=== PATIENT | female | born 1995 | race Caucasian/White ===

== ENCOUNTER 2018-01-27 11:07 | Emergency (ER) | payer SELFPAY ==
[2018-01-27 11:48] LABS: #Basophils 0.1 thou/uL (0.0-0.2); #Eosinphils 0.1 thou/uL (0.0-0.7); #Lymphocytes 2.6 thou/uL (1.20-3.40); #Monocytes 0.6 thou/uL (0.11-0.59); #Neutrophils 4.7 thou/uL (1.40-6.50); %Eosinophils 1.2 % (0.0-10.0); %Lymphocytes 32.2 % (21.0-51.0); %Monocytes 7.3 % (0.0-10.0); %Neutrophils 58.3 % (42.0-75.0); Hemoglobin 15.4 g/dL (12.0-16.0); Mean Corpuscular HGB CONC 33.3 g/dL (32.0-36.0); Mean Corpuscular Hemoglobin 32.2 pg (27.0-31.0); Mean Corpuscular Volume 96.8 fl (81.0-99.0); Mean Platelet Volume 6.3 fL (7.4-10.4); Platelet Count 296 thou/uL (130-400); RBC Distribution Width 11.7 % (11.5-14.5); Red Blood Cell (RBC) Count 4.79 mill/uL (4.20-5.40); White Blood Cell (WBC) Count 8.1 thou/uL (4.8-10.8)
== END 2018-01-27 12:40 | disposition left against medical advice (07) ==
LOC: ERS 11:07
DX: Z53.21 Procedure and treatment not carried out due to patient leaving prior to being seen by health care provider (principal)
CPT/HCPCS: 36415; 84702; 85025; 86900; 86901

== ENCOUNTER 2018-02-06 21:45 | Emergency (ER) | payer OTHER, SELFPAY ==
[2018-02-06] MEDS ORDERED: Ondansetron HCl/PF 4 MG/2 ML Vial ONE (22:01)
[2018-02-06] MEDS ORDERED: Lorazepam 2 MG/ML VIAL ONE (22:01)
[2018-02-06 23:03] LABS: #Basophils 0.1 thou/uL (0.0-0.2); #Eosinphils 0.1 thou/uL (0.0-0.7); #Lymphocytes 3.2 thou/uL (1.20-3.40); #Monocytes 0.4 thou/uL (0.11-0.59); #Neutrophils 5.2 thou/uL (1.40-6.50); %Basophils 0.9 % (0.0-1.0); %Eosinophils 1.4 % (0.0-10.0); %Lymphocytes 35.3 % (21.0-51.0); %Monocytes 4.9 % (0.0-10.0); %Neutrophils 57.5 % (42.0-75.0); Hemoglobin 14.5 g/dL (12.0-16.0); Mean Corpuscular HGB CONC 34.3 g/dL (32.0-36.0); Mean Corpuscular Hemoglobin 32.6 pg (27.0-31.0); Mean Platelet Volume 6.4 fL (7.4-10.4); Platelet Count 262 thou/uL (130-400); RBC Distribution Width 11.4 % (11.5-14.5); Red Blood Cell (RBC) Count 4.46 mill/uL (4.20-5.40); White Blood Cell (WBC) Count 9.1 thou/uL (4.8-10.8)
[2018-02-06 23:23] LABS: ALT (SGPT) 19 U/L (8-55); AST (SGOT) 20 U/L (5-34); Albumin 4.3 g/dL (3.5-5.0); Alkaline Phosphatase 84 U/L (40-150); Anion Gap 12 mmol/L (10-20); BUN (Urea Nitrogen) 5 mg/dL (7.0-18.7); Bilirubin, Total 0.2 mg/dL (0.2-1.2); Calc. Creatinine Clearance 0 mL/min (70-130); Calcium 8.9 mg/dL (7.8-10.44); Carbon Dioxide 27 mmol/L (22-29); Chloride 111 mmol/L (98-107); Estimated GFR-MDRD Greater than 90; Globulin 2.6 g/dL (2.4-3.5); Glucose 88 mg/dL (70-105); Lipase 24 U/L (8-78); Potassium 3.3 mmol/L (3.5-5.1); Protein, Total 6.9 g/dL (6.0-8.3); Sodium 147 mmol/L (136-145)
[2018-02-06 23:24] LABS: Acetaminophen Less than 6.0 mcg/mL (10.0-30.0); Alcohol 307 mg/dL (Less than 10); CK (CPK) 614 U/L (29-168); Salicylate Less than 8.0 mg/dL (15.0-30.0)
[2018-02-06 23:34] LABS: BHCG - Serum Negative (NEGATIVE); Pregs Control Background? CLEAR/WHITE (CLR/WHITE); Pregs Control Bar Appear? YES (CONTROL BAR)
[2018-02-06 23:45] LABS: Amphetamine Not Detected (NotDetected); Barbiturates Screen Not Detected (NotDetected); Benzodiazepine Screen Not Detected (NotDetected); Cocaine Metabolite Screen Not Detected (NotDetected); Medtox Control Line Valid? VALID (VALID); Medtox Reader # READER 4; Methadone Not Detected (NotDetected); Methamphetamine Not Detected (NotDetected); Opiate Screen Not Detected (NotDetected); Oxycodone Screen Not Detected (NotDetected); Phencyclidine (PCP) Not Detected (NotDetected); THC/Cannabinoid Screen Detected (NotDetected); Tricyclic Screen Not Detected (NotDetected)
[2018-02-06 23:46] LABS: Thyroid Stimulating Hormone 1.9516 uIU/mL (0.35-4.94)
[2018-02-06 23:50] LABS: Bilirubin Negative (Negative); Blood, Urine Negative (Negative); Clarity CLEAR (Clear); Glucose, Urine (Dipstick) Negative (Negative); Leukocyte Negative (Negative); Nitrite Negative (Negative); Pregnancy Test - Urine (BHCG) Negative (Negative); Pregu Control Background? CLEAR/WHITE (CLR/WHITE); Pregu Control Bar Appear? YES (CONTROL BAR); Protein, Urine (Dipstick) Negative (Neg-Trace); Specific Gravity, Urine 1.007 (1.002-1.036); Urobilinogen 0.2 mg/dL (0.2-1.0)
[2018-02-06 23:51] LABS: Specific Gravity 1.007 (1.002-1.036)
== END 2018-02-07 00:40 | disposition home or self-care (01) ==
LOC: ERS 21:45
DX: F10.129 Alcohol abuse with intoxication, unspecified (principal); I10 Essential (primary) hypertension; F17.210 Nicotine dependence, cigarettes, uncomplicated
CPT/HCPCS: 36415; 80053; 80306; 80307; 81003; 81025; 82550; 83690; 84443; 84703; 85025; 96361; 96374; 96375; J2060; J2405

== ENCOUNTER 2018-11-02 18:04 | Emergency (ER) | payer OTHER, SELFPAY ==
[2018-11-02] MEDS ORDERED: Lidocaine 1% (PF) 30 ML VIAL ONE (18:59)
[2018-11-02] MEDS ORDERED: Bacitracin Zinc 1 Packet ONE (20:23)
== END 2018-11-02 20:40 | disposition home or self-care (01) ==
LOC: ERS 18:04
DX: L03.011 Cellulitis of right finger (principal); I10 Essential (primary) hypertension; F17.210 Nicotine dependence, cigarettes, uncomplicated
CPT/HCPCS: 26010; J2001

== ENCOUNTER 2018-11-22 16:10 | Inpatient (IN) | payer SELFPAY ==
[~2018-11-22 16:10] MED LIST: Heparin 1,000 UNITS/ML VIAL ONE
[2018-11-22 17:37] LABS: Bilirubin Moderate (Negative); Blood, Urine Large (Negative); Clarity TURBID (Clear); Glucose, Urine (Dipstick) Negative (Negative); Leukocyte Large (Negative); Nitrite Negative (Negative); Protein, Urine (Dipstick) 100 mg/dL (Neg-Trace); Specific Gravity, Urine 1.016 (1.002-1.036)
[2018-11-22 17:39] LABS: Pregnancy Test - Urine (BHCG) Negative (Negative); Pregu Control Background? CLEAR/WHITE (CLR/WHITE); Pregu Control Bar Appear? YES (CONTROL BAR); Specific Gravity 1.016 (1.002-1.036)
[2018-11-22 17:43] LABS: Bacteria/HPF Rare-Few HPF (None Seen); Hyaline Casts/LPF 4-6 HYALINE CAST LPF (0-3 Hyaline); Pathc Cast-AUWi Flag 1.19 (0-2.49); RBC/HPF GREATER THAN 50-TNTC HPF (0-3)
[2018-11-22] MEDS ORDERED: Lidocaine 1% (PF) 30 ML VIAL ONE ×2 (18:01→18:02)
--- NOTE | 2018-11-22 18:53 | RAD ---
THREE VIEWS OF THE RIGHT MIDDLE FINGER 11/12/18 COMPARISON: None. HISTORY: Swelling, pain. FINDINGS: There is cortical bone loss involving the distal aspect of the third distal phalanx with overlying so ft tissue swelling, concerning for osteomyelitis involving the distal tip of the third distal phalanx . IMPRESSION: Soft tissue swelling with distal cortical bone loss and permeative lytic change involving distal tip of the third distal phalanx. Findings are consistent with osteomyelitis. Recommend MRI with and witho ut contrast to evaluate full extent of disease. POS: [facility]
[2018-11-22 18:55] LABS: #Basophils 0.1 thou/uL (0.0-0.2); #Eosinphils 0.1 thou/uL (0.0-0.7); #Monocytes 0.9 thou/uL (0.11-0.59); #Neutrophils 3.7 thou/uL (1.40-6.50); %Basophils 0.8 % (0.0-1.0); %Eosinophils 0.9 % (0.0-10.0); %Lymphocytes 38.7 % (21.0-51.0); %Monocytes 11.9 % (0.0-10.0); %Neutrophils 47.7 % (42.0-75.0); Hemoglobin 13.7 g/dL (12.0-16.0); Mean Corpuscular HGB CONC 32.3 g/dL (32.0-36.0); Mean Corpuscular Hemoglobin 27.6 pg (27.0-31.0); Mean Corpuscular Volume 85.2 fL (78.0-98.0); Mean Platelet Volume 6.7 fL (7.4-10.4); Platelet Count 434 thou/uL (130-400); RBC Distribution Width 13.5 % (11.5-14.5); Red Blood Cell (RBC) Count 4.98 mill/uL (4.20-5.40); White Blood Cell (WBC) Count 7.8 thou/uL (4.8-10.8)
[2018-11-22 19:18] LABS: ALT (SGPT) 22 U/L (8-55); AST (SGOT) 20 U/L (5-34); Albumin 4.4 g/dL (3.5-5.0); Alkaline Phosphatase 86 U/L (40-150); Anion Gap 14 mmol/L (10-20); BUN (Urea Nitrogen) 12 mg/dL (7.0-18.7); Bilirubin, Total 0.2 mg/dL (0.2-1.2); Calc. Creatinine Clearance 0 mL/min (70-130); Calcium 9.9 mg/dL (7.8-10.44); Carbon Dioxide 26 mmol/L (22-29); Chloride 103 mmol/L (98-107); Estimated GFR-MDRD Greater than 90; Globulin 2.9 g/dL (2.4-3.5); Glucose 63 mg/dL (70-105); Potassium 3.2 mmol/L (3.5-5.1); Protein, Total 7.3 g/dL (6.0-8.3); Sodium 140 mmol/L (136-145)
--- NOTE | 2018-11-22 19:46 | PDOC.FPRHP ---
Addendum entered and electronically signed by Michell Mcduffie MD 11/23/18 03:25 : polysubstance abuse: - HIV, RPR, and hep C screening pending. Original Note: - History of Present Illness Chief Complaint: right middle finger pain History of Present Illness: The patient is a 23YOF w/ a PMH significant for HTN who presented to the ED with a CC of persistent right middle finger pain and swelling that she reports she first noticed about 1 month ago. The patient states that she was in her usual state of health until just over 1 month ago when she first developed a hemorrhagic swelling in her right 5th finger. She reports soaking her finger at home and says the "blister" eventually burst and her skin peeled off the end of her 5th finger. However, shortly after that resolved, she began to have swelling and pain in the tip of her right 3rd finger. She says after about 1 week of it getting progressively worse she came to the [facility] ED on 11/02 where they attempted to drain it and were not successful. At that time she was diagnosed with cellulitis and sent home with a script for topical bacitracin and a 10 day course bactrim which she completed. However continued to have persistent swelling and pain and has since noted purulent discharge draining from the tip as well. She also reports associated numbness that begins just at the base of her fingernail and gets progressively worse closer to the tip of her finger. The patient also reports decreased ROM in her fingertip 2/ swelling. She endorses subjective fever/chills, decreased appetite, and generalized fatigue. She also endorses some nausea, dyspnea at rest, and urinary frequency. The patient denies any chest pain or palpitations. ED Course: IV vancomycin and rocephin as well as a lidocaine injection - Allergies/Adverse Reactions Allergies Allergy/AdvReac Type Severity Reaction Status Date / Time tramadol Allergy Intermediate Verified 11/22/18 19:55 - Home Medications Medication Instructions Recorded Confirmed Type No Known 11/23/18 11/23/18 History - History PMHx: HTN- not treated, PCOS, HELLP with last . PSHx: right inguinal hernia: age 8 FHx: Father: HTN Social: Does not work. Smokes since age 12(1/2 PPD), No alcohol use. Reports meth, cocaine, marijuana use last weekend. Denies any h/o IV drug use. Only smokes or snorts drugs. - Review of Systems General: reports: fever/chills, fatigue (feels feverish but no objective fever) Eyes: denies: eye pain ENT: denies: nasal congestion Respiratory: reports: congestion, shortness of breath (at rest). denies: cough Cardiovascular: denies: chest pain, palpitation Gastrointestinal: reports: nausea, constipation. denies: vomiting, diarrhea Genitourinary: reports: other (LMP: 11/22/2018, increased urine frequency). denies: dysuria Skin: reports: lesions (hands, face- maybe spider bite). denies: rashes Musculoskeletal: reports: pain (finger), tenderness (finger) Neurological: reports: numbness (in right middle finger tip). denies: syncope Psychological: reports: anxiety (not on meds). denies: depression - Vital signs BP: 137/89 HR: 110 RR: 16 Tmax: 98.8F Pox: 100% on RA Wt: 35.8kg - Physical Exam Constitutional: NAD, awake, alert and oriented, well developed HEENT: normocephalic and atraumatic, conjunctiva clear, grossly normal vision, grossly normal hearing, MMM, oropharynx clear Neck: supple, FROM, no LAD Chest: no-tender to palpation, no lesions Heart: RRR, normal S1/S2, no murmurs/rubs/gallops, pulses present, no edema Lungs: CTAB, no respiratory distress, good air movement, no rales/rhonchi, no wheezing Abdomen: soft, non-tender, bowel sounds present Musculoskeletal: normal structure, ROM grossly normal Neurological: no focal deficit, CN II-XII intact, other (decreased sensation in distal right 3rd finger) Skin: no jaundice, other (no rash noted; significant edema w/o no surrounding erythema in distal right 3rd digit w/ trace purulent discharge & pallor noted; erythematous, healing skin in distal right 5th digit) Heme/Lymphatic: no unusual bruising or bleeding, no purpura, no petechia Psychiatric: normal mood and affect, good judgment and insight, intact recent and remote memory FMR H&P: Results - Labs Result Diagrams: 11/23/18 06:06 11/23/18 06:06 Lab results: WBC 7.8 thou/uL (4.8-10.8) 11/22/18 18:44 Hgb 13.7 g/dL (12.0-16.0) 11/22/18 18:44 Hct 42.4 % (36.0-47.0) 11/22/18 18:44 MCV 85.2 fL (78.0-98.0) 11/22/18 18:44 Plt Count 434 thou/uL (130-400) H 11/22/18 18:44 Neutrophils % 47.7 % (42.0-75.0) 11/22/18 18:44 Sodium 140 mmol/L (136-145) 11/22/18 18:45 Potassium 3.2 mmol/L (3.5-5.1) L 11/22/18 18:45 Chloride 103 mmol/L (98-107) 11/22/18 18:45 Carbon Dioxide 26 mmol/L (22-29) 11/22/18 18:45 BUN 12 mg/dL (7.0-18.7) 11/22/18 18:45 Creatinine 0.79 mg/dL (0.6-1.1) 11/22/18 18:45 Glucose 63 mg/dL (70-105) L 11/22/18 18:45 Calcium 9.9 mg/dL (7.8-10.44) 11/22/18 18:45 Total Bilirubin 0.2 mg/dL (0.2-1.2) 11/22/18 18:45 AST 20 U/L (5-34) 11/22/18 18:45 ALT 22 U/L (8-55) 11/22/18 18:45 Alkaline Phosphatase 86 U/L (40-150) 11/22/18 18:45 Serum Total Protein 7.3 g/dL (6.0-8.3) 11/22/18 18:45 Albumin 4.4 g/dL (3.5-5.0) 11/22/18 18:45 Urine Ketones 15 mg/dL (Negative) H 11/22/18 17:02 Urine Blood Large (Negative) H 11/22/18 17:02 Urine Nitrite Negative (Negative) 11/22/18 17:02 Ur Leukocyte Esterase Large (Negative) H 11/22/18 17:02 Urine RBC GREATER THAN 50-TNTC HPF (0-3) H 11/22/18 17:02 Urine WBC Greater Than 50-TNTC HPF (0-3) H 11/22/18 17:02 Ur Squamous Epith Cells 4-6 HPF (0-3) H 11/22/18 17:02 Urine Bacteria Rare-Few HPF (None Seen) 11/22/18 17:02 - Radiology Interpretation Other Status: image reviewed by me, report reviewed by me ( right hand x-ray: distal cortical bone loss with lytic change consistent with osteo) FMR H&P: A/P - Problem List (1) Osteomyelitis Current Visit: Yes Status: Acute Code(s): M86.9 - OSTEOMYELITIS, UNSPECIFIED Qualifiers: Osteomyelitis location: hand Laterality: right (2) Hypokalemia Current Visit: Yes Status: Acute Code(s): E87.6 - HYPOKALEMIA (3) Sinus tachycardia Current Visit: Yes Status: Acute Code(s): R00.0 - TACHYCARDIA, UNSPECIFIED (4) HTN (hypertension) Current Visit: Yes Status: Chronic Code(s): I10 - ESSENTIAL (PRIMARY) HYPERTENSION (5) PCOS (polycystic ovarian syndrome) Current Visit: Yes Status: Chronic Code(s): E28.2 - POLYCYSTIC OVARIAN SYNDROME (6) History of hemolysis, elevated liver enzymes, and low platelet (HELLP) syndrome Current Visit: Yes Status: Chronic Code(s): Z87.59 - PERSONAL HISTORY OF COMP OF PREG, CHLDBRTH AND THE PUERP (7) Polysubstance abuse Current Visit: Yes Status: Acute Code(s): F19.10 - OTHER PSYCHOACTIVE SUBSTANCE ABUSE, UNCOMPLICATED (8) Tobacco use Current Visit: Yes Status: Acute Code(s): Z72.0 - TOBACCO USE - Plan 23YOF w/ a PMH significant for HTN who presented to the ED w/ a CC of right finger pain and swelling and was found to have osteomyelitis in the distal portion of her right 3rd digit on x-ray. Osteomyelitis of distal right 3rd digit: - WBC WNLs and patient has been afebrile since presentation. However, x-ray findings consistent with osteomyelitis. Will get a CRP to trend. Will consult hand surgery in the AM and get an MRI per their recommendations. - Will continue IV vancomycin and rocephin that was started in the ED. - Will continue PO tylenol for pain control as patient actually reports numbness and only pain with palpation. Will escalate pain control PRN. - Blood cultures pending. - CM consulted as patient is uninsured and will likely need assistance getting set up for IV abx upon discharge. Hypokalemia: - Aware, K of 3.2 on presentation. - Will get a repeat CMP in the AM and give a dose of 40mEq PO with breakfast. - Will continue to monitor. Sinus tachycardia: - Aware, likely 2/2 infection. However, patient admitted to polysubstance abuse. Will get a UDS as well. Possible UTI: - Urine grossly bloody 2/2 menstruation & patient endorses only urinary frequency. However, also + for LE, ketones, and small bacteria. IV Rocephin will cover if their is an infection. Urine culture pending. HTN: - BP slightly above normal limits in the ED. - Will continue to monitor and start on antihypertensive therapy PRN. PCOS: - Aware, will encourage outpatient follow-up. Polysubstance abuse: - Patient admitted to cocaine, marijuana, and most recently meth use. - UDS pending. - Will encourage cessation. Tobacco use: - Aware, will encourage cessation. - Nicotine patch will be ordered if patient requests one. Dispo: Will admit to inpatient medical floor and consult hand surgery in the AM. Anticipate d/c in no less than 2-3 days pending surgery recs. Abx: Rocephin & vancomycin day #1 DVT PPx: SCDs GI PPX: none IVFs: SL Code status: FULL CODE FMR H&P: Upper Level - Pertinent history 23 yr old female with PMH of HTN who presents for right middle finger pain. Seen in ER on 11/02/18 after about a week of pain in her right middle finger tip and 5th digit. Had I&D of middle finger. Then on bactrim for 10 days. Not getting better, finger feels numb. Has pins and needles feeling. Has been draining at home. 5th digit seems to be better. - Pertinent findings X ray right middle finger- 3rd distal phalanx lytic lesions c/w osteomyelitis Gen: No acute distress, well appearing Face: small lesion on right chin without erythema EXT: right 3rd digit distal tip with some pallor, no erythema, ulcerated appearance, raised nail bed, tender to touch Heart: RRR, no murmurs, gallops, rubs Lungs: CTAB, no wheezes, rhales, rhonchi Abd: soft, nontender to palpation Skin: no rashes - Plan Date/Time: 11/22/181945 I, [Elisa eNvarez], have evaluated this patient and agree with findings/plan as outlined by general internal medicine physician resident. Pertinent changes/additions are listed here. Right 3rd digit osteomyelitis -started on vanc and rocephin in ER, will continue -consult hand surgeon in AM and consider MRI if desired -pending CRP -consult wound care HTN -monitor Drug use -pending UDS -cessation counseling provided -will screen for HIV and hepatitis C Tobacco use -smoking cessation counseling provided PCP: none, City call DVT ppx: SCDs GI ppx: none Diet: Reg, NPO after midnight Dispo: admit to medical, will require IV abx, likely 2-3 day stay depending on need for oil heaterman abx. Addendum - Attending - Attending Attestation Date/Time: 11/22/182036 I personally evaluated the patient and discussed the management with Dr. Mcduffie. I agree with the History, Examination, Assessment and Plan documented above with any addition or exceptions noted below. The patient presented with a several week history of pain in the distal tip of the right 3rd finger with swelling. She failed outpt bactrum and bacitracin that was prescribed at an er visit in October. XR is consistent with osteomyelitis. Vanc and rocephin have been started. Blood cultures are pending. Pt admits to drug use but denies IV drug use. will get UDS. Will consult hand surgeon.
[2018-11-22] MEDS ORDERED: Sodium Chloride 0.9% 100 ML ONE (20:17)
[2018-11-22] MEDS ORDERED: cefTRIAXone\\ROCEPHIN 1 GM VIAL ONE (20:17)
[2018-11-22] MEDS ORDERED: Vancomycin HCl 500 MG in Sodium Chloride 0.9% 100 ML IVPB SCH (20:45)
[2018-11-22] MEDS ORDERED: diphenhydrAMINE 12.5 MG/5 ML UDCUP ONE (22:03)
[2018-11-22] MEDS ORDERED: diphenhydrAMINE 50 MG/ML VIAL ONE (22:04)
[2018-11-22] MEDS ORDERED: Acetaminophen 325 MG TAB PO PRN (23:37)
[2018-11-23 01:38] VITALS: BMI 21.2
[2018-11-23 04:00] LABS: HIV (1/2) Antibody/Antigen Non-Reactive (NonReactive); HIV 1/2 INDEX 0.05 S/CO (<1.00); Hep C IgG Ab Non-Reactive (NonReactive); Hep C Index 0.12 S/CO (0-0.79)
[2018-11-23 04:30] LABS: Amphetamine Detected (NotDetected); Barbiturates Screen Not Detected (NotDetected); Benzodiazepine Screen Not Detected (NotDetected); Cocaine Metabolite Screen Not Detected (NotDetected); Medtox Control Line Valid? VALID (VALID); Medtox Reader # READER 1; Methadone Not Detected (NotDetected); Methamphetamine Detected (NotDetected); Opiate Screen Not Detected (NotDetected); Oxycodone Screen Not Detected (NotDetected); Phencyclidine (PCP) Not Detected (NotDetected); THC/Cannabinoid Screen Not Detected (NotDetected); Tricyclic Screen Not Detected (NotDetected)
--- NOTE | 2018-11-23 06:41 | PDOC.FM ---
- Subjective Subjective: Ms. Bess has no new complaints this morning. Tolerating PO intake well. Reports subjective fever/chills overnight. - Objective MAR Reviewed: Yes Vital Signs & Weight: Vital Signs (12 hours) Temp Pulse Resp BP Pulse Ox 11/23/18 05:13 98.6 F 103 H 16 114/68 95 11/23/18 00:00 98.2 F 100 16 124/71 96 11/22/18 23:15 97.9 F 97 20 116/74 100 Weight Weight 39.916 kg Result Diagrams: 11/23/18 06:06 11/23/18 06:06 Phys Exam - Physical Examination Constitutional: NAD Respiratory: clear to auscultation bilateral Cardiovascular: RRR, no significant murmur Gastrointestinal: soft, non-tender, positive bowel sounds Musculoskeletal: no edema R 3rd finger pale, skin peeling, decreased sensation, no open wound. Neurological: non-focal Psychiatric: normal affect Skin: normal turgor Dx/Plan (1) Osteomyelitis Code(s): M86.9 - OSTEOMYELITIS, UNSPECIFIED Status: Acute Qualifiers: Osteomyelitis location: hand Laterality: right (2) Hypokalemia Code(s): E87.6 - HYPOKALEMIA Status: Acute (3) Polysubstance abuse Code(s): F19.10 - OTHER PSYCHOACTIVE SUBSTANCE ABUSE, UNCOMPLICATED Status: Acute (4) Tobacco use Code(s): Z72.0 - TOBACCO USE Status: Acute (5) PCOS (polycystic ovarian syndrome) Code(s): E28.2 - POLYCYSTIC OVARIAN SYNDROME Status: Chronic - Plan Plan: 23YOF w/ a PMH significant for HTN who presented to the ED w/ a CC of right finger pain and swelling and was found to have osteomyelitis in the distal portion of her right 3rd digit on x-ray. Osteomyelitis of distal right 3rd digit: - WBC normal, afebrile since presentation. - x-ray findings consistent with osteomyelitis - consult hand surgery today and get MRI if requested - Will continue IV vancomycin and rocephin (11/23) - Tylenol prn - Blood cultures pending, NGTD - CM consulted as patient is uninsured and will likely need assistance getting set up for IV abx upon discharge. Hypokalemia: - K of 3.2 on presentation. - Replace with 40meq this am - Will continue to monitor. Sinus tachycardia: - likely 2/2 infection. However, patient admitted to polysubstance abuse. Possible UTI: - Urine grossly bloody 2/2 menstruation & patient endorses only urinary frequency. However, also + for LE, ketones, and small bacteria. IV Rocephin will cover if their is an infection. Urine culture pending. Initial elevated BP, now resolved - BP slightly above normal limits in the ED. - Will continue to monitor PCOS: - Aware, will encourage outpatient follow-up. Polysubstance abuse: - Patient admitted to cocaine, marijuana, and most recently meth use. - UDS + for meth, amphetamines - Will encourage cessation. Tobacco use: - Aware, will encourage cessation. - Nicotine patch will be ordered if patient requests one. Dispo: Pending surgery recs Abx: Rocephin & vancomycin DVT PPx: SCDs GI PPX: none IVFs: SL Code status: FULL CODE Addendum - Attending - Attending Attestation Date/Time: 11/23/18 [id number] I personally evaluated the patient and discussed the management with Dr. Johnson. I agree with the History, Examination, Assessment and Plan documented above with any addition or exceptions noted below. Will continue IV antibiotics for osteomyelitis. Consulting hand surgeon, wound care.
[2018-11-23 06:49] LABS: Syphilis Antibody Nonreactive (Nonreactive); Syphilis Antibody Index 0.01 S/CO (<1.00 Non-Reactive)
[2018-11-23 06:59] LABS: #Basophils 0.1 thou/uL (0.0-0.2); #Eosinphils 0.1 thou/uL (0.0-0.7); #Lymphocytes 3.1 thou/uL (1.20-3.40); #Monocytes 0.9 thou/uL (0.11-0.59); #Neutrophils 2.6 thou/uL (1.40-6.50); %Basophils 1.1 % (0.0-1.0); %Eosinophils 1.6 % (0.0-10.0); %Lymphocytes 45.2 % (21.0-51.0); %Monocytes 13.1 % (0.0-10.0); Hemoglobin 11.7 g/dL (12.0-16.0); Mean Corpuscular Hemoglobin 27.5 pg (27.0-31.0); Mean Corpuscular Volume 85.9 fL (78.0-98.0); Platelet Count 361 thou/uL (130-400); RBC Distribution Width 13.5 % (11.5-14.5); Red Blood Cell (RBC) Count 4.25 mill/uL (4.20-5.40); White Blood Cell (WBC) Count 6.8 thou/uL (4.8-10.8)
[2018-11-23 07:16] LABS: ALT (SGPT) 17 U/L (8-55); AST (SGOT) 14 U/L (5-34); Albumin 3.4 g/dL (3.5-5.0); Alkaline Phosphatase 80 U/L (40-150); Anion Gap 10 mmol/L (10-20); BUN (Urea Nitrogen) 15 mg/dL (7.0-18.7); Bilirubin, Total Less than 0.2 mg/dL (0.2-1.2); Calc. Creatinine Clearance 73 mL/min (70-130); Calcium 8.9 mg/dL (7.8-10.44); Carbon Dioxide 26 mmol/L (22-29); Chloride 109 mmol/L (98-107); Estimated GFR-MDRD Greater than 90; Globulin 2.2 g/dL (2.4-3.5); Glucose 95 mg/dL (70-105); Potassium 4.3 mmol/L (3.5-5.1); Protein, Total 5.6 g/dL (6.0-8.3); Sodium 141 mmol/L (136-145)
[2018-11-23] MEDS ORDERED: Potassium Chloride 20 MEQ TAB PO ONE (08:00)
[2018-11-23] MEDS: Vancomycin HCl 500 MG in Sodium Chloride 0.9% 100 ML IVPB SCH ×2 (08:52→23:04)
[2018-11-23] MEDS ORDERED: Gadobenate Dimeglumine 529 MG/1 ML (20ML VIAL) ONE (11:34)
[2018-11-23] MEDS ORDERED: Ibuprofen 800 MG TAB PO PRN (19:34)
[2018-11-23] MEDS: cefTRIAXone\\ROCEPHIN 1 GM in Sodium Chloride 0.9% 100 ML IVPB SCH (19:55)
--- NOTE | 2018-11-23 20:13 | MRI ---
RIGHT FINGER AND HAND MRI WITH AND WITHOUT IV CONTRAST: 11/23/18 HISTORY: Wound to the distal third finger with redness and swelling. COMPARISON: Plain film examination 11/22/18. FINDINGS: There is soft tissue swelling with some enhancement of the distal third finger evidence for celluliti s. There is extensive destructive changes of the distal tuft of the distal phalanx with abnormal sign al, T1 hypointense, STIR and T2 hyperintense within the distal phalanx evidence for distal phalanx os teomyelitis. There is some trace fluid noted within the flexor digitorum tendon sheath of the third f judith at the level of the metacarpal. No evidence for drainable abscess. IMPRESSION: Osteomyelitis involving the distal phalanx of the middle finger with destruction of the tuft with georges e associated cellulitis but no evidence for a drainable abscess. Trace fluid in the third finger flex or digitorum tendon sheath at the level of the distal metacarpal. POS: [facility]
[2018-11-23] MEDS ORDERED: Vancomycin HCl 1 GM in Premix Bag 1 BAG IVPB SCH (23:30)
[2018-11-24] MEDS: Ondansetron ODT 4 MG TAB PO PRN (05:39)
--- NOTE | 2018-11-24 06:42 | PDOC.FM ---
- Subjective Subjective: Patient sleeping well this morning. Reports continued finger pain. Otherwise no complaints. Plans for surgery today. - Objective MAR Reviewed: Yes Vital Signs & Weight: Vital Signs (12 hours) Temp Pulse Resp BP Pulse Ox 11/24/18 05:00 98.5 F 97 16 107/68 97 11/24/18 00:00 98.2 F 103 H 16 111/68 96 11/23/18 20:00 100 11/23/18 19:30 98.6 F 105 H 20 129/87 100 Weight Admit Weight 39.916 kg Weight 39.916 kg I&O: 11/22/18 11/23/18 11/24/18 06:59 06:59 06:59 Intake Total 580 Balance 580 Result Diagrams: 11/24/18 07:01 11/24/18 07:01 Phys Exam - Physical Examination Constitutional: NAD Respiratory: clear to auscultation bilateral Cardiovascular: RRR, no significant murmur Gastrointestinal: soft, non-tender, positive bowel sounds R 3rd finger skin peeling, unchanged since yesterday Neurological: non-focal Dx/Plan (1) Osteomyelitis Code(s): M86.9 - OSTEOMYELITIS, UNSPECIFIED Status: Acute Qualifiers: Osteomyelitis location: hand Laterality: right (2) Hypokalemia Code(s): E87.6 - HYPOKALEMIA Status: Acute (3) Polysubstance abuse Code(s): F19.10 - OTHER PSYCHOACTIVE SUBSTANCE ABUSE, UNCOMPLICATED Status: Acute (4) Tobacco use Code(s): Z72.0 - TOBACCO USE Status: Acute (5) PCOS (polycystic ovarian syndrome) Code(s): E28.2 - POLYCYSTIC OVARIAN SYNDROME Status: Chronic - Plan Plan: 23YOF w/ a PMH significant for HTN who presented to the ED w/ a CC of right finger pain and swelling and was found to have osteomyelitis in the distal portion of her right 3rd digit on x-ray. Osteomyelitis of distal right 3rd digit: - WBC normal, afebrile since presentation. - x-ray and MRI findings consistent with osteomyelitis - Will continue IV vancomycin and rocephin (11/23) - Tylenol prn - Blood cultures, NGTD - Dr. Harmon consulted, plan for surgery today, appreciate recommendations - CM consulted as patient is uninsured and will likely need assistance for follow up needs Hypokalemia, resolved - K of 3.2 on presentation, now resolved - Will continue to monitor. PCOS: - encourage outpatient follow-up. Polysubstance abuse: - Patient admitted to cocaine, marijuana, and most recently meth use. - UDS + for meth, amphetamines - Will encourage cessation. Tobacco use: - encourage cessation. - Nicotine patch will be ordered if patient requests one. Dispo: Pending surgery recs Abx: Rocephin & vancomycin DVT PPx: SCDs GI PPX: none IVFs: SL Code status: FULL CODE Addendum - Attending - Attending Attestation Date/Time: 11/24/18 [id number] I personally evaluated the patient and discussed the management with Dr. Johnson. I agree with the History, Examination, Assessment and Plan documented above with any addition or exceptions noted below. The patient still has pain in the finger. Will go for surgery today. Continue IV antibiotics.
[2018-11-24] MEDS ORDERED: Fentanyl 100 MCG/2 ML VIAL ONE ×2 (07:30→09:43)
[2018-11-24] MEDS ORDERED: Bupivacaine PF 0.5% 30 ML VIAL ONE (07:39)
[2018-11-24] MEDS ORDERED: Bacitracin Zinc Ointment 30 gm TUBE ONE (07:39)
[2018-11-24 07:49] LABS: #Eosinphils 0.1 thou/uL (0.0-0.7); #Lymphocytes 2.6 thou/uL (1.20-3.40); #Monocytes 0.8 thou/uL (0.11-0.59); #Neutrophils 4.3 thou/uL (1.40-6.50); %Basophils 0.6 % (0.0-1.0); %Eosinophils 1.6 % (0.0-10.0); %Lymphocytes 33.2 % (21.0-51.0); %Monocytes 10.4 % (0.0-10.0); %Neutrophils 54.4 % (42.0-75.0); Hemoglobin 11.5 g/dL (12.0-16.0); Mean Corpuscular HGB CONC 31.8 g/dL (32.0-36.0); Mean Corpuscular Hemoglobin 27.3 pg (27.0-31.0); Mean Corpuscular Volume 85.7 fL (78.0-98.0); Platelet Count 342 thou/uL (130-400); RBC Distribution Width 13.5 % (11.5-14.5); Red Blood Cell (RBC) Count 4.21 mill/uL (4.20-5.40)
[2018-11-24 08:00] LABS: ALT (SGPT) 19 U/L (8-55); AST (SGOT) 18 U/L (5-34); Albumin 3.5 g/dL (3.5-5.0); Alkaline Phosphatase 81 U/L (40-150); Anion Gap 13 mmol/L (10-20); BUN (Urea Nitrogen) 16 mg/dL (7.0-18.7); Bilirubin, Total Less than 0.2 mg/dL (0.2-1.2); Calc. Creatinine Clearance 79 mL/min (70-130); Calcium 8.6 mg/dL (7.8-10.44); Carbon Dioxide 23 mmol/L (22-29); Chloride 107 mmol/L (98-107); Estimated GFR-MDRD Greater than 90; Globulin 2.3 g/dL (2.4-3.5); Glucose 99 mg/dL (70-105); Potassium 4.4 mmol/L (3.5-5.1); Protein, Total 5.8 g/dL (6.0-8.3); Sodium 139 mmol/L (136-145)
[2018-11-24] MEDS ORDERED: Ondansetron HCl/PF 4 MG/2 ML Vial IVP PRN (09:21)
[2018-11-24] MEDS ORDERED: Promethazine HCl 25 MG/ML VIAL IM PRN (09:21)
[2018-11-24] MEDS ORDERED: Promethazine HCl 25 MG/ML VIAL SLOW IVP PRN (09:21)
[2018-11-24] MEDS ORDERED: Ketorolac Tromethamine 30 MG/ML VIAL ONE ×2 (09:59→15:45)
--- NOTE | 2018-11-24 09:59 | RAD ---
TWO INTRAOPERATIVE IMAGES OF THE RIGHT 3RD FINGER: DATE: 11/24/2018. HISTORY: Hand biopsy. FINDINGS: Two intraoperative images demonstrate permeative change at the distal aspect of the 3rd distal phalan x with overlying soft tissue swelling. IMPRESSION: Intraoperative imaging as detailed above. POS: [facility]
[2018-11-24] MEDS: Vancomycin HCl 500 MG in Sodium Chloride 0.9% 100 ML IVPB SCH (10:46)
[2018-11-24] MEDS ORDERED: Ketorolac Tromethamine 30 MG/ML VIAL IM SCH (11:00)
[2018-11-24] MEDS ORDERED: Meperidine HCl/PF 25 MG/ML VIAL IM PRN (13:57)
[2018-11-24 14:49] LABS: Ref Lab Test Ordered LYME TITER; Reference Lab Name LABCORP
[2018-11-24] MEDS: Morphine 4 MG/ML VIAL IV PRN ×2 (15:04→20:41)
[2018-11-24] MEDS ORDERED: Lidocaine 1% PF 5 ML VIAL ONE (15:45)
[2018-11-24] MEDS ORDERED: Ondansetron PF 4 MG/2 ML Vial ONE (15:45)
[2018-11-24] MEDS ORDERED: Dexamethasone 20 MG/5 ML VIAL ONE (15:45)
[2018-11-24] MEDS ORDERED: PROPOFOL 200 MG/20 ML VIAL ONE (15:45)
[2018-11-24] MEDS ORDERED: PHENYLEPHRINE-NS 100 MCG/ML 10 ML SYRINGE ONE (15:45)
--- NOTE | 2018-11-24 16:20 | CON ---
DATE OF CONSULTATION: REASON FOR CONSULTATION: Right third digit inflammatory process with osteomyelitis. HISTORY OF PRESENT ILLNESS: A 23-year-old with history of alcoholism and hypertension, who developed chronic swelling of the distal aspect of the right middle finger. She did decide to treat her at home and then she ended up in [place] [facility] on November 02, which they diagnosed her cellulitis and sent home on Bactrim. She continued to have problems and now is finally admitted. Dr. Harmon is taking care of her imaging studies show osteomyelitis of the distal phalanx. No headaches, visual symptoms, sore throat, odynophagia, or dysphagia. No cough or sputum productive. No chest pain. No abdominal pain or diarrhea. No genitourinary symptoms. No neurological symptoms. PAST MEDICAL HISTORY: Includes hypertension, polycystic ovarian syndrome, HELLP syndrome, and alcoholism. PAST SURGICAL HISTORY: Inguinal hernia. FAMILY HISTORY: Hypertension. SOCIAL HISTORY: Chronic smoker, reportedly uses methamphetamine and cocaine, but no IV drug use. There is a history of excessive alcoholic beverage use as well. PHYSICAL EXAMINATION: VITAL SIGNS: T-max 98.6, blood pressure 110/71, pulse 89, respirations 16, and O2 saturation 97%. SKIN: Showed an erythematous swollen distal phalanx of right third digit, little bit of blistering at the end of the digit. The nail bed appears okay. No other skin lesions. HEENT: No lymphadenopathy. Ocular movements conjugate. Sclerae white. Pupils are equal. Cavity moist. NECK: Supple. No jugular venous distention. LUNGS: Clear to auscultation and percussion. HEART: S1 and S2. Regular rate without murmurs. ABDOMEN: Soft, not distended or tender. EXTREMITIES: Pulses are normal in lower extremities. LABORATORY DATA: White cell count is 7.8 and 8.0, hemoglobin 11.5, and platelets 342. Sodium 139 and creatinine 0.7 with normal liver profile. Albumin 4.4 and 3.5. Urinalysis is greater than 50 wbc's. Amphetamines detected. HIV serology nonreactive. Hepatitis C nonreactive. Syphilis nonreactive and the microbiology with negative blood culture thus far at 48 hours. IMAGING STUDIES: With evidence of osteomyelitis distal phalanx, middle finger destruction of tuft with some associated cellulitis, but no abscess. Trace fluid in the third finger flexor digitorum tendon sheath. ASSESSMENT AND PLAN: Osteomyelitis likely tenosynovitis. We will need surgical debridement, cultures and then target antimicrobial therapy according to culture results. Since antibiotics were administered prior to sampling, this will affect the results of cultures. Disposition will be made difficult because of her social situation and history of drug use. Job ID: [id number]
[2018-11-24] MEDS: Ketorolac Tromethamine 30 MG/ML VIAL IVP SCH (17:31)
[2018-11-24] MEDS: cefTRIAXone\\ROCEPHIN 1 GM in Sodium Chloride 0.9% 100 ML IVPB SCH (20:40)
[2018-11-24 20:56] LABS: Vancomycin, Trough 4.8 ug/mL
[2018-11-24] MEDS ORDERED: Vancomycin HCl 500 MG in Sodium Chloride 0.9% 100 ML IVPB SCH (21:00)
[2018-11-24] MEDS ORDERED: Vancomycin HCl 750 MG in Sodium Chloride 0.9% 250 ML 250 ML IVPB SCH (21:15)
[2018-11-25] MEDS: Ketorolac Tromethamine 30 MG/ML VIAL IVP SCH ×4 (01:05→17:16)
[2018-11-25] MEDS: Vancomycin HCl 750 MG in Sodium Chloride 0.9% 250 ML 250 ML IVPB SCH ×2 (06:04→14:24)
[2018-11-25 07:12] LABS: ALT (SGPT) 18 U/L (8-55); AST (SGOT) 15 U/L (5-34); Albumin 3.1 g/dL (3.5-5.0); Alkaline Phosphatase 70 U/L (40-150); Anion Gap 8 mmol/L (10-20); BUN (Urea Nitrogen) 14 mg/dL (7.0-18.7); Bilirubin, Total Less than 0.2 mg/dL (0.2-1.2); Calc. Creatinine Clearance 87 mL/min (70-130); Calcium 8.1 mg/dL (7.8-10.44); Carbon Dioxide 26 mmol/L (22-29); Chloride 109 mmol/L (98-107); Estimated GFR-MDRD Greater than 90; Globulin 2.1 g/dL (2.4-3.5); Glucose 102 mg/dL (70-105); Potassium 3.7 mmol/L (3.5-5.1); Protein, Total 5.2 g/dL (6.0-8.3); Sodium 139 mmol/L (136-145)
--- NOTE | 2018-11-25 09:14 | PDOC.FM ---
- Subjective Subjective: No acute events overnight. Still reports pain at surgical site, well controlled with current pain meds. - Objective MAR Reviewed: Yes Vital Signs & Weight: Vital Signs (12 hours) Temp Pulse Resp BP Pulse Ox 11/25/18 08:00 98.2 F 101 H 14 100/60 97 11/25/18 04:00 98.1 F 92 16 105/64 97 11/25/18 00:00 98.7 F 93 16 121/65 97 Weight Admit Weight 39.916 kg Weight 39.916 kg I&O: 11/24/18 11/25/18 11/26/18 06:59 06:59 06:59 Intake Total 580 240 Balance 580 240 Result Diagrams: 11/24/18 07:01 11/25/18 06:23 Phys Exam - Physical Examination Constitutional: NAD HEENT: moist MMs, sclera anicteric Neck: supple, full ROM R hand bandaged, post op Neurological: non-focal, moves all 4 limbs Psychiatric: normal affect, A&O x 3 Dx/Plan (1) Hypokalemia Code(s): E87.6 - HYPOKALEMIA Status: Acute (2) Osteomyelitis Code(s): M86.9 - OSTEOMYELITIS, UNSPECIFIED Status: Acute Qualifiers: Osteomyelitis location: hand Laterality: right (3) Sinus tachycardia Code(s): R00.0 - TACHYCARDIA, UNSPECIFIED Status: Acute (4) Tobacco use Code(s): Z72.0 - TOBACCO USE Status: Acute (5) HTN (hypertension) Code(s): I10 - ESSENTIAL (PRIMARY) HYPERTENSION Status: Chronic (6) PCOS (polycystic ovarian syndrome) Code(s): E28.2 - POLYCYSTIC OVARIAN SYNDROME Status: Chronic - Plan Plan: 23YOF with tenosynovitis of distal right 3rd digit s/p debridement Tenosynovitis of distal right 3rd digit, s/p debridement, POD1 - Osteo confirmed with XR and MRI - Continue vanc - Will d/c rocephin - Tylenol prn - Blood cultures, NGTD - Pending bone cultures - CM consulted as patient is uninsured and will likely need assistance for follow up needs - Possible autoimmune component, will order w/u : CHRISTOPHER, scleroderma ABs Hypokalemia, resolved - K of 3.2 on presentation, now resolved - Will continue to monitor. PCOS: - encourage outpatient follow-up. Polysubstance abuse: - Patient admitted to cocaine, marijuana, and most recently meth use. - UDS + for meth, amphetamines - Will encourage cessation. - Check HIV/Hep/RPR Tobacco use: - encourage cessation. - Nicotine patch will be ordered if patient requests one. Dispo: Pending surgery recs DVT PPx: SCDs GI PPX: none IVFs: SL Code status: FULL CODE Addendum - Attending - Attending Attestation Date/Time: 11/25/18 8405 I personally evaluated the patient and discussed the management with Dr. Nunn I agree with the History, Examination, Assessment and Plan documented above with any addition or exceptions noted below. Continue IV vancomycin pending final C&S will ask I&D opinion further rec Osteomyelitis Rx
[2018-11-25] MEDS ORDERED: Clindamycin 150 MG CAP PO SCH (10:00)
[2018-11-25 13:15] LABS: ANA Symphony (Qualitative) Negative (Negative); ANA Symphony (Quantitative) Less than 0.1 Ratio (< 0.7 Negative); CCP IgG Antibody 0.5 EliAU/mL (<7 Negative); EliA RAS New Method **** NEW METHOD ****; Rheumatoid Factor IgA Antibody 1.7 IU/mL (<14 Negative); Rheumatoid Factor IgM Antibody Less than 0.5 IU/mL (<3.5 Negative); dsDNA IgG Antibody Less than 0.5 IU/mL (<10 Negative)
--- NOTE | 2018-11-25 14:05 | PRG ---
DATE OF SERVICE: 11/25/2018 SUBJECTIVE: Ms. Bae is not in the room at this time. According to the nurse, she feels constrained in the room and wants to go out. She is afebrile. Other vital signs are normal. LABORATORY DATA: Shows white cell count of 8.0. Albumin 3.1. All the autoimmune panel was negative. HIV serology and hepatitis C serology negative. Microbiology with Staphylococcus aureus pending susceptibility studies. Dr. Harmon did a bone biopsy. I do not have an operative report yet to review. ASSESSMENT AND DISCUSSION: History of polysubstance use with right third digit inflammatory process with osteomyelitis. This disposition will be difficult because of social situation and history of drug use. We will await for the final results of the susceptibility studies, but could consider oral combination of Cipro and clindamycin or Cipro and Keflex. If it is MRSA, then I will recommend IV therapy. Job ID: [id number]
[2018-11-25] MEDS: Morphine 4 MG/ML VIAL IV PRN (14:25)
--- NOTE | 2018-11-25 14:39 | OP ---
DATE OF PROCEDURE: 11/24/2018 PREOPERATIVE DIAGNOSIS: Right middle finger distal phalanx osteomyelitis. FINDING: Mucopurulent with erosion and loss of the radial distal 5 mm corner of the distal phalanx at this right middle finger, secondary to osteomyelitis, holding the skin. PROCEDURES PERFORMED: 1. Removal of nail. 2. Resection, cortical bone, phalanx for osteomyelitis. 3. Bone biopsy. 4. Irrigation. 5. C-arm supervision. ESTIMATED BLOOD LOSS Less than 10 mL. TOURNIQUET TIME: 9 minutes. SPECIMEN SENT: Yes. 1. Wound culture. 2. Bone culture. 3. Bone biopsy to Pathology . INDICATION: The patient with almost 3 months of swelling, intermittent drainage, pain, and decreased function at this right middle finger with lytic lesion in the radial distal corner of the distal phalanx. DESCRIPTION OF PROCEDURE: After successful anesthesia, limb was prepped and draped. The patient then had the C-arm brought in to field, timeout performed, radial distal corner. We made a curvilinear 1 cm incision over the area, dissected the skin medially, gross purulence escaped, white pus and then there was a saul mucopurulence seen with subacute or chronic osteomyelitis. We debrided this. We sent a culture of the mucopurulence. We sent a culture of the bone. We then sent a bone specimen for biopsy. I have removed the corner completely and there was bleeding bone on the left and we felt there was enough support for the nail bed. We then irrigated the area, retracted the incision to visualize the bone with 3 L normal saline and Pulsavac pressure. We deflated the tourniquet. We did not close the wound and left it open with a small amount of Adaptic inside. Bulky dressing was applied. We occluded the index finger in the outside bulky dressing with support, and the patient left the operating room with pink digits. No evidence of anesthetic operative complication. Job ID: [id number]
[2018-11-25] MEDS ORDERED: Senokot 8.6 MG TAB PO PRN (20:01)
[2018-11-25] MEDS ORDERED: Polyethylene Glycol 3350 17 GM Packet PO PRN (20:01)
[2018-11-25] MEDS: HYDROcodone/Acetaminophen 7.5/325 mg Tablet PO PRN (20:33)
[2018-11-25 22:13] LABS: Vancomycin, Trough 12.8 ug/mL
[2018-11-25] MEDS ORDERED: Vancomycin HCl 1 GM in Premix Bag 1 BAG IVPB SCH (22:30)
[2018-11-25 22:32] LABS: Syphilis Antibody Nonreactive (Nonreactive); Syphilis Antibody Index 0.01 S/CO (<1.00 Non-Reactive)
[2018-11-25] MEDS: Vancomycin HCl 1 GM in Premix Bag 1 BAG IVPB SCH (22:56)
[2018-11-26 00:20] LABS: HBSAB Concentration 0.64 mIU/mL; HBSAg Index 0.19 S/CO (0-0.99); HIV (1/2) Antibody/Antigen Non-Reactive (NonReactive); HIV 1/2 INDEX 0.07 S/CO (<1.00); Hep B Surf AB Non-Reactive (NonReactive); Hep B Surf Ag Non-Reactive S/CO (NonReactive); Hep C IgG Ab Non-Reactive (NonReactive)
[2018-11-26] MEDS: Ketorolac Tromethamine 30 MG/ML VIAL IVP SCH ×5 (00:54→23:29)
[2018-11-26] MEDS: Ondansetron ODT 4 MG TAB PO PRN (05:21)
[2018-11-26] MEDS: Vancomycin HCl 1 GM in Premix Bag 1 BAG IVPB SCH ×3 (05:23→15:25)
[2018-11-26 07:39] LABS: ALT (SGPT) 19 U/L (8-55); AST (SGOT) 15 U/L (5-34); Albumin 3.2 g/dL (3.5-5.0); Alkaline Phosphatase 68 U/L (40-150); Anion Gap 10 mmol/L (10-20); BUN (Urea Nitrogen) 9 mg/dL (7.0-18.7); Bilirubin, Total Less than 0.2 mg/dL (0.2-1.2); Calc. Creatinine Clearance 87 mL/min (70-130); Calcium 8.2 mg/dL (7.8-10.44); Carbon Dioxide 26 mmol/L (22-29); Chloride 107 mmol/L (98-107); Estimated GFR-MDRD Greater than 90; Glucose 94 mg/dL (70-105); Potassium 3.9 mmol/L (3.5-5.1); Protein, Total 5.2 g/dL (6.0-8.3); Sodium 139 mmol/L (136-145)
[2018-11-26] MEDS: HYDROcodone/Acetaminophen 7.5/325 mg Tablet PO PRN ×3 (08:37→20:49)
[2018-11-26] MEDS: Vancomycin HCl 750 MG in Sodium Chloride 0.9% 250 ML 250 ML IVPB SCH (10:49)
[2018-11-26] MEDS ORDERED: Bisacodyl 5 MG TAB PO PRN (10:51)
--- NOTE | 2018-11-26 11:20 | PDOC.FM ---
- Objective Vital Signs & Weight: Vital Signs (12 hours) Temp Pulse Resp BP Pulse Ox 11/26/18 08:00 100 11/26/18 07:58 98.4 F 109 H 16 115/72 100 11/26/18 04:00 98.5 F 93 16 109/72 97 11/26/18 00:00 98.2 F 91 16 93/57 L 96 Weight Admit Weight 39.916 kg Weight 39.916 kg I&O: 11/25/18 11/26/18 11/27/18 06:59 06:59 06:59 Intake Total 240 2130 Balance 240 2130 Result Diagrams: 11/24/18 07:01 11/26/18 07:11 Dx/Plan (1) Hypokalemia Code(s): E87.6 - HYPOKALEMIA Status: Acute (2) Osteomyelitis Code(s): M86.9 - OSTEOMYELITIS, UNSPECIFIED Status: Acute Qualifiers: Osteomyelitis location: hand Laterality: right (3) Sinus tachycardia Code(s): R00.0 - TACHYCARDIA, UNSPECIFIED Status: Acute (4) Tobacco use Code(s): Z72.0 - TOBACCO USE Status: Acute (5) HTN (hypertension) Code(s): I10 - ESSENTIAL (PRIMARY) HYPERTENSION Status: Chronic (6) PCOS (polycystic ovarian syndrome) Code(s): E28.2 - POLYCYSTIC OVARIAN SYNDROME Status: Chronic - Plan Plan: 23YOF with tenosynovitis of distal right 3rd digit s/p debridement Tenosynovitis of distal right 3rd digit, s/p debridement, POD1 - Osteo confirmed with XR and MRI - Continue vanc - Tylenol prn - Blood cultures, NGTD - Pending bone cultures - CM consulted as patient is uninsured and will likely need assistance for follow up needs - Possible autoimmune component, will order w/u : CHRISTOPHER, scleroderma ABs - transition to po meds based on sensitivities, will confirm with Dr. Stewart on regimen & duration Hypokalemia, resolved - K of 3.2 on presentation, now resolved - Will continue to monitor. PCOS: - encourage outpatient follow-up. Polysubstance abuse: - Patient admitted to cocaine, marijuana, and most recently meth use. - UDS + for meth, amphetamines - Will encourage cessation. - Check HIV/Hep/RPR Tobacco use: - encourage cessation. - Nicotine patch will be ordered if patient requests one. Dispo: d/c home today on oral outpt abx regimen, f/u at [facility] DVT PPx: SCDs GI PPX: none IVFs: SL Code status: FULL CODE5 Addendum - Attending - Attending Attestation Date/Time: 11/26/18 4255 I personally evaluated the patient and discussed the management with Dr. Nunn I agree with the History, Examination, Assessment and Plan documented above with any addition or exceptions noted below. Patient is stable MSSA suitable RX po cephalexin regard cost etc. d/c pending hand surgery rec and ID confirmation home antibiotic. director long term care concern continued substance abuse resources offered.
[2018-11-26] MEDS: cefTRIAXone\\ROCEPHIN 2 GM in Sodium Chloride 0.9% 100 ML IVPB SCH (17:41)
--- NOTE | 2018-11-26 17:53 | SPC ---
SONOGRAPHIC GUIDED LEFT UPPER EXTREMITY PICC 11/26/18 HISTORY: Finger infection. FINDINGS: After explaining the procedure and answering all questions, the left upper arm was prepped and draped in the usual sterile fashion. Sterile technique, buffered local anesthesia, sonographic guidance, an d a 22 gauge needle were used to carefully access the left cephalic vein. Standard technique was then used to place the tip of the 5 [place] single lumen PICC so that the tip lies at the level of the sup erior vena cava. Catheter was flushed and secured externally. Patient tolerated the procedure well an d was returned in unchanged condition. Fluoro time: 0.3 minutes. IMPRESSION: Left upper extremity PICC is ready for use. POS: [facility]
[2018-11-26 21:53] LABS: Vancomycin, Trough 4.5 ug/mL
[2018-11-27] MEDS: HYDROcodone/Acetaminophen 7.5/325 mg Tablet PO PRN ×2 (03:57→08:38)
[2018-11-27] MEDS: Ondansetron ODT 4 MG TAB PO PRN (03:58)
[2018-11-27] MEDS: Ketorolac Tromethamine 30 MG/ML VIAL IVP SCH (05:24)
--- NOTE | 2018-11-27 06:45 | PDOC.FM ---
- Subjective Subjective: NAEO. Denies fevers, chills. Mild pain at surgical site. - Objective Vital Signs & Weight: Vital Signs (12 hours) Temp Pulse Resp BP Pulse Ox 11/27/18 04:00 98.4 F 86 16 114/71 97 11/27/18 00:00 97.8 F 96 16 108/73 95 11/26/18 20:00 98.8 F 95 16 99/62 95 Weight Admit Weight 39.916 kg Weight 39.916 kg I&O: 11/25/18 11/26/18 11/27/18 06:59 06:59 06:59 Intake Total 240 2130 1100 Balance 240 2130 1100 Result Diagrams: 11/24/18 07:01 11/26/18 07:11 Phys Exam - Physical Examination Constitutional: NAD HEENT: moist MMs, sclera anicteric Neck: full ROM Right hand bandaged Neurological: non-focal, moves all 4 limbs Psychiatric: normal affect, A&O x 3 Dx/Plan (1) Osteomyelitis Code(s): M86.9 - OSTEOMYELITIS, UNSPECIFIED Status: Acute Qualifiers: Osteomyelitis location: hand Laterality: right (2) Sinus tachycardia Code(s): R00.0 - TACHYCARDIA, UNSPECIFIED Status: Acute (3) Tobacco use Code(s): Z72.0 - TOBACCO USE Status: Acute (4) HTN (hypertension) Code(s): I10 - ESSENTIAL (PRIMARY) HYPERTENSION Status: Chronic (5) PCOS (polycystic ovarian syndrome) Code(s): E28.2 - POLYCYSTIC OVARIAN SYNDROME Status: Chronic - Plan Plan: MSSA+ Osteomyelitis distal right 3rd digit, s/p debridement, POD3 - Osteo confirmed with XR and MRI - PICC line placed 11/26, Per Dr. Stewart will receive IV rocephin for 4-6 weeks - Tylenol prn for pain - Blood cultures, NGTD - CM consulted as patient is uninsured and will likely need assistance for follow up needs - Possible autoimmune component, pending scleroderma AB labs-will f/u oupt Hypokalemia, resolved - K of 3.2 on presentation, now resolved - Will continue to monitor. PCOS: - encourage outpatient follow-up. Polysubstance abuse: - Patient admitted to cocaine, marijuana, and most recently meth use. - UDS + for meth, amphetamines - Will encourage cessation. - Check HIV/Hep/RPR Tobacco use: - encourage cessation. - Nicotine patch will be ordered if patient requests one. Dispo: Likely home today with continued IV rocephin with PICC line pending insurance approval for this as pt is uninsured. Working with CM on this. DVT PPx: SCDs GI PPX: none IVFs: SL Addendum - Attending - Attending Attestation Date/Time: 11/27/182019 I personally evaluated the patient and discussed the management with Dr. Nunn I agree with the History, Examination, Assessment and Plan documented above with any addition or exceptions noted below.
[2018-11-27 16:10] LABS: SSA/Ro IgG Antibody Less than 0.3 EliAU/mL (<7 Negative); SSB/La IgG Antibody Less than 0.3 EliAU/mL (<7 Negative); Scleroderma-70 IgG Antibody Less than 0.6 EliAU/mL (<7 Negative)
[2018-11-27 16:41] VITALS: BP 117/77; TEMP 98.7
[2018-11-27] MEDS: cefTRIAXone\\ROCEPHIN 2 GM in Sodium Chloride 0.9% 100 ML IVPB SCH (17:05)
--- NOTE | 2018-11-28 14:03 | DIS ---
DATE OF ADMISSION: 11/22/2018 DATE OF DISCHARGE: 11/27/2018 ADMITTING ATTENDING: Sharon Travis MD DISCHARGE ATTENDING: Preston Ortega MD RESIDENT: Liza Nunn MD, PGY-1 CONSULTS: 1. Dr. Harmon, Hand Surgery. 2. Dr. Stewart, Infectious Disease PROCEDURES: Removal of nail of right middle finger with resection of cortical bone and phalanx for osteomyelitis. Also, bone biopsy with irrigation. PRIMARY DIAGNOSIS: Osteomyelitis of the right third finger, status post debridement. SECONDARY DIAGNOSES: 1. Polycystic ovary syndrome. 2. Polysubstance abuse. 3. Tobacco abuse. 4. Hypokalemia, resolved. 5. Anxiety. DISCHARGE MEDICATIONS: 1. Acetaminophen 650 mg p.o. q.4 hours p.r.n. for pain. 2. Dulcolax 10 mg p.o. daily p.r.n. for constipation. 3. Rocephin 2 g via PICC line daily for 4 weeks, with consideration to transition to oral cephalexin after that. 4. Motrin 800 mg p.o. q.8 p.r.n. for pain. 5. MiraLAX 17 g p.o. daily p.r.n. for constipation. 6. Senokot one tab p.o. at bedtime p.r.n. for constipation. HOSPITAL COURSE: A 23-year-old female, who presented to the ED for persistent right middle finger pain secondary to swelling that she first noticed one month ago. She visited urgent care and was rx bacitracin with no improvement, prompting visit to our ED. Xray and MRI confirmed osteomyelitis of the 3rd middle phalanx of the right hand. Patient underwent cleanout with hand surgeon, Dr. Harmon. Bone bx showed MSSA. Blood cultures resulted as negative. Patient had no systemic signs of infection prior or during hospital. Dr. Stewart recommended Rocephin via PICC line 2g daily for next 4 weeks with weekly CBC, CMP, CRP. Plans to transition to po cephalexin after that. Postoperative course was uncomplicated otherwise. Cause of osteomyelitis was unclear. Patient denied IV drug use though UDS was positive for methamphetamines. Autoimmune panel was ordered to further workup, results are pending. In addition, the patient reported feeling fatigued and having some anxiety. Plans were made for her to follow up in the outpatient setting at our clinic in order to further work this up. DISCHARGE INSTRUCTIONS: 1. Location: Home. 2. Diet: As tolerated. 3. Activity: As tolerated. 4. Followup: a. Please follow up with PCP, Dr. Liza Nunn at [facility] in the next 7 to 10 days. b. Please follow up with Dr. Harmon, Hand Surgeon within the next week for continued care. c. Please follow up with Dr. Stewart within the next 2 weeks in order to receive further guidance on antibiotic management. d. Please report to the [facility]fusion [facility] for daily Rocephin treatment for the next 4 weeks. Job ID: [id number] [facility]
--- NOTE | 2018-11-30 13:04 | EKG ---
Test Reason : Blood Pressure : / mmHG Vent. Rate : 105 BPM Atrial Rate : 105 BPM P-R Int : 130 ms QRS Dur : 072 ms QT Int : 344 ms P-R-T Axes : 070 069 065 degrees QTc Int : 454 ms Sinus tachycardia Possible Left atrial enlargement Borderline ECG Confirmed by ISAIAH COE ([id number]), loan expeditor ADRIANA CROFT ([id number]) on 11/30/2018 1:04:06 PM Referred By: Confirmed By:ISAIAH COE
== END 2018-11-27 18:25 | disposition home or self-care (01) | DRG 479 ==
LOC: ERS 16:10 → T4-B 22:26
PROVIDERS: ADMIT Family Medicine; ATTEND Family Medicine
PROC: 0PBT0ZX Excision of Right Finger Phalanx, Open Approach, Diagnostic (ICD-10-PCS; principal; 2018-11-22)
DX: M86.8X4 Other osteomyelitis, hand (principal); E87.6 Hypokalemia; R00.0 Tachycardia, unspecified; I10 Essential (primary) hypertension; E28.2 Polycystic ovarian syndrome; F19.10 Other psychoactive substance abuse, uncomplicated; Z72.0 Tobacco use; F41.9 Anxiety disorder, unspecified
CPT/HCPCS: 36415; 36569; 76000; 80053; 80202; 80306; 81003; 81015; 81025; 83520; 85025; 85652; 86038; 86140; 86200; 86225; 86235; 86706; 86780; 86803; 86812; 87040; 87070; 87077; 87086; 87186; 87205; 87340; 87389; 88307; 88311; 93005; 96365; 96367; 96375; A9579; C1751; J0696; J1100; J1200; J1644; J1885; J2001; J2270; J2405; J2704; J3010; J3370; J3490; J7050; Q0162; S0020

== ENCOUNTER 2018-11-28 08:05 | Emergency (ER) | payer SELFPAY ==
[2018-11-28 08:42] LABS: #Eosinphils 0.1 thou/uL (0.0-0.7); #Lymphocytes 1.5 thou/uL (1.20-3.40); #Monocytes 0.5 thou/uL (0.11-0.59); #Neutrophils 4.6 thou/uL (1.40-6.50); %Basophils 0.7 % (0.0-1.0); %Eosinophils 1.5 % (0.0-10.0); %Lymphocytes 22.3 % (21.0-51.0); %Monocytes 7.9 % (0.0-10.0); %Neutrophils 67.6 % (42.0-75.0); Hemoglobin 11.4 g/dL (12.0-16.0); Mean Corpuscular HGB CONC 31.7 g/dL (32.0-36.0); Mean Corpuscular Hemoglobin 27.4 pg (27.0-31.0); Mean Corpuscular Volume 86.5 fL (78.0-98.0); Mean Platelet Volume 6.6 fL (7.4-10.4); Platelet Count 308 thou/uL (130-400); RBC Distribution Width 13.6 % (11.5-14.5); Red Blood Cell (RBC) Count 4.18 mill/uL (4.20-5.40); White Blood Cell (WBC) Count 6.8 thou/uL (4.8-10.8)
[2018-11-28 09:10] LABS: ALT (SGPT) 28 U/L (8-55); AST (SGOT) 21 U/L (5-34); Albumin 3.9 g/dL (3.5-5.0); Alkaline Phosphatase 84 U/L (40-150); Anion Gap 12 mmol/L (10-20); BUN (Urea Nitrogen) 13 mg/dL (7.0-18.7); Bilirubin, Total 0.2 mg/dL (0.2-1.2); Calc. Creatinine Clearance 0 mL/min (70-130); Calcium 9.2 mg/dL (7.8-10.44); Carbon Dioxide 25 mmol/L (22-29); Chloride 102 mmol/L (98-107); Estimated GFR-MDRD Greater than 90; Globulin 2.5 g/dL (2.4-3.5); Glucose 140 mg/dL (70-105); Potassium 4.3 mmol/L (3.5-5.1); Protein, Total 6.4 g/dL (6.0-8.3); Sodium 135 mmol/L (136-145)
--- NOTE | 2018-11-28 09:22 | RAD ---
CHEST 2 VIEWS: HISTORY: Chest pain. Dyspnea. FINDINGS: Cardiac silhouette and pulmonary vasculature unremarkable. Mediastinum is midline. Left upper extre mity PICC is in place. No confluent airspace consolidation, pneumothorax, or pleural fluid. IMPRESSION: No active cardiopulmonary abnormalities are demonstrated. POS: [facility]
[2018-11-28 09:46] LABS: Bilirubin Negative (Negative); Blood, Urine Moderate (Negative); Clarity CLEAR (Clear); Glucose, Urine (Dipstick) Negative (Negative); Leukocyte Trace (Negative); Nitrite Negative (Negative); Protein, Urine (Dipstick) Negative (Neg-Trace); Specific Gravity, Urine 1.009 (1.002-1.036); Urobilinogen 0.2 mg/dL (0.2-1.0); pH, Urine 7.5 (5.0-9.0)
[2018-11-28 09:49] LABS: Bacteria/HPF None Seen HPF (None Seen); Hyaline Casts/LPF 0-3 HYALINE CAST LPF (0-3 Hyaline); Pathc Cast-AUWi Flag 0.29 (0-2.49); RBC/HPF 21-50 HPF (0-3); WBC/HPF 0-3 HPF (0-3)
[2018-11-28 09:50] LABS: Pregnancy Test - Urine (BHCG) Negative (Negative); Pregu Control Background? CLEAR/WHITE (CLR/WHITE); Pregu Control Bar Appear? YES (CONTROL BAR); Specific Gravity 1.009 (1.002-1.036)
--- NOTE | 2018-11-28 10:41 | CT ---
CT PULMONARY ANGIOGRAM WITH IV CONTRAST AND 3D MIP RECONSTRUCTIONS: Date: 11-28-18 Provided Clinical History: Chest pain. FINDINGS: The heart, pericardium, and great vessels demonstrate an unremarkable CT appearance. There is no evid ence for central or segmental pulmonary embolus. A left sided central line is present, the tip of whi ch terminates in the region of the cavoatrial junction. The lungs are free of significant opacity. Th ere is no pleural fluid or pneumothorax apparent. The airway appears patent and of normal caliber. No evidence for thoracic lymph node enlargement. The visualized portions of the upper abdomen demonstra te no acute abnormality. The osseous structures demonstrate no concerning lytic or blastic lesions. IMPRESSION: No evidence for central or segmental pulmonary embolus. POS: [facility]
[2018-11-28] MEDS ORDERED: ISOVUE-370 76%-LOCM 1 ML ONE (11:22)
== END 2018-11-28 10:39 | disposition home or self-care (01) ==
LOC: ERS 08:05
DX: R07.81 Pleurodynia (principal); I10 Essential (primary) hypertension
CPT/HCPCS: 36415; 71046; 71275; 80053; 81003; 81015; 81025; 83690; 84484; 85025; 93005

== ENCOUNTER 2018-12-24 18:45 | Emergency (ER) | payer SELFPAY ==
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
== END 2018-12-24 21:19 | disposition home or self-care (01) ==
LOC: ERS 18:45
DX: S60.221A Contusion of right hand, initial encounter (principal); S10.93XA Contusion of unspecified part of neck, initial encounter; I10 Essential (primary) hypertension; Y04.0XXA Assault by unarmed brawl or fight, initial encounter

== ENCOUNTER 2019-06-23 16:22 | Emergency (ER) | payer SELFPAY | END 2019-06-23 16:29 | disposition left against medical advice (07) | LOC: ERS 16:22 | DX: Z53.21 Procedure and treatment not carried out due to patient leaving prior to being seen by health care provider (principal) ==

== ENCOUNTER 2019-10-01 13:19 | Emergency (ER) | payer SELFPAY ==
[2019-10-01 14:29] LABS: Bilirubin Negative (Negative); Blood, Urine Negative (Negative); Clarity Clear (Clear); Glucose, Urine (Dipstick) Normal (Negative); Leukocyte Negative Leu/uL (Negative); Nitrite Negative (Negative); Protein, Urine (Dipstick) Negative (Neg-Trace); Urobilinogen Normal mg/dL (Less than 2)
[2019-10-01 14:33] LABS: Pregnancy Test - Urine (BHCG) Negative (Negative); Pregu Control Background? CLEAR/WHITE (CLR/WHITE); Pregu Control Bar Appear? YES (CONTROL BAR); Specific Gravity 1.016 (1.002-1.036)
[2019-10-01] MEDS ORDERED: Ketorolac Tromethamine 30 MG/ML VIAL ONE (15:35)
[2019-10-01 15:47] LABS: #Basophils 0.1 thou/uL (0.0-0.2); #Eosinphils 0.1 thou/uL (0.0-0.7); #Lymphocytes 1.4 thou/uL (1.20-3.40); #Monocytes 0.7 thou/uL (0.11-0.59); %Basophils 0.7 % (0.0-1.0); %Lymphocytes 19.7 % (21.0-51.0); %Monocytes 9.7 % (0.0-10.0); %Neutrophils 68.9 % (42.0-75.0); Mean Corpuscular HGB CONC 32.2 g/dL (32.0-36.0); Mean Corpuscular Volume 80.6 fL (78.0-98.0); Mean Platelet Volume 7.3 fL (7.4-10.4); Platelet Count 284 thou/uL (130-400); RBC Distribution Width 13.4 % (11.5-14.5); Red Blood Cell (RBC) Count 4.23 mill/uL (4.20-5.40); White Blood Cell (WBC) Count 7.3 thou/uL (4.8-10.8)
[2019-10-01 16:08] LABS: ALT (SGPT) 14 U/L (8-55); AST (SGOT) 17 U/L (5-34); Albumin 4.2 g/dL (3.5-5.0); Alkaline Phosphatase 88 U/L (40-110); Anion Gap 12 mmol/L (10-20); BUN (Urea Nitrogen) 7 mg/dL (7.0-18.7); Bilirubin, Total Less than 0.2 mg/dL (0.2-1.2); Calc. Creatinine Clearance 0 mL/min (70-130); Calcium 9.2 mg/dL (7.8-10.44); Carbon Dioxide 27 mmol/L (22-29); Chloride 103 mmol/L (98-107); Estimated GFR-MDRD Greater than 90; Globulin 2.8 g/dL (2.4-3.5); Glucose 93 mg/dL (70-105); Potassium 3.7 mmol/L (3.5-5.1); Sodium 138 mmol/L (136-145)
--- NOTE | 2019-10-01 16:19 | RAD ---
Exam: Chest 2 views HISTORY:Cough and fever Comparison: 11/28/2018 FINDINGS: Lungs: No masses or consolidation. Cardiac silhouette: Normal size Pulmonary vessels: Normal Pleural Spaces: Clear Pneumothorax: None Osseous abnormalities: None of acuity. IMPRESSION: No focal consolidation.
--- NOTE | 2019-10-01 18:28 | ULT ---
Pelvic ultrasound: 10/01/2019 COMPARISON: None HISTORY: Right lower quadrant pain and left lower quadrant pain TECHNIQUE: Multiplanar grayscale sonographic imaging of the pelvis is obtained with transabdominal im aging. Ovaries are assessed with color flow and spectral analysis FINDINGS: Uterus measures 7.0 x 3.2 x 4.6 cm. Normal endometrial stripe measuring 8 mm. No free fluid seen in the pelvis. The right ovary demonstrates normal blood flow and measures 2.9 x 2.1 x 2.0 cm. Left ovary demonstrat es normal blood flow and measures 3.8 x 3.3 x 2.9 cm. Simple cyst noted within left ovary measuring 2.8 x 2.1 x 2.7 cm. IMPRESSION: 2.8 cm left ovarian cyst. Study is otherwise unremarkable.
[2019-10-01] MEDS ORDERED: cefTRIAXone\\ROCEPHIN 250 MG VIAL ONE (18:58)
[2019-10-01] MEDS ORDERED: Lidocaine 1% PF 5 ML VIAL ONE (18:58)
[2019-10-01] MEDS ORDERED: Azithromycin 250 MG TAB ONE (19:00)
[2019-10-04 00:59] LABS: Chlamydia by PCR Not Detected (NotDetected); GC by PCR Not Detected (NotDetected)
== END 2019-10-01 19:28 | disposition home or self-care (01) ==
LOC: ERS 13:19
DX: N83.202 Unspecified ovarian cyst, left side (principal); J20.9 Acute bronchitis, unspecified; A60.04 Herpesviral vulvovaginitis; I10 Essential (primary) hypertension; Z79.899 Other long term (current) drug therapy
CPT/HCPCS: 36415; 71046; 76856; 80053; 81003; 81025; 85025; 87480; 87491; 87510; 87591; 87660; J0696; J1885; J2001

== ENCOUNTER 2020-01-15 04:44 | Emergency (ER) | payer SELFPAY | END 2020-01-15 05:12 | disposition home or self-care (01) | LOC: ERS 04:44 | DX: J06.9 Acute upper respiratory infection, unspecified (principal); F17.210 Nicotine dependence, cigarettes, uncomplicated; Z79.899 Other long term (current) drug therapy | CPT/HCPCS: 99281 ==

== ENCOUNTER 2020-01-20 16:26 | Emergency (ER) | payer SELFPAY ==
[2020-01-20 18:17] LABS: #Basophils 0.1 thou/uL (0.0-0.2); #Eosinphils 0.2 thou/uL (0.0-0.7); #Lymphocytes 2.3 thou/uL (1.20-3.40); #Monocytes 0.8 thou/uL (0.11-0.59); #Neutrophils 5.8 thou/uL (1.40-6.50); %Basophils 0.6 % (0.0-1.0); %Lymphocytes 25.4 % (21.0-51.0); %Monocytes 8.8 % (0.0-10.0); %Neutrophils 63.2 % (42.0-75.0); Mean Corpuscular HGB CONC 32.8 g/dL (32.0-36.0); Mean Corpuscular Hemoglobin 26.4 pg (27.0-31.0); Mean Corpuscular Volume 80.6 fL (78.0-98.0); Mean Platelet Volume 7.4 fL (7.4-10.4); Platelet Count 348 thou/uL (130-400); Red Blood Cell (RBC) Count 4.56 mill/uL (4.20-5.40); White Blood Cell (WBC) Count 9.1 thou/uL (4.8-10.8)
[2020-01-20 18:26] LABS: Bilirubin Negative (Negative); Blood, Urine 2+ (Negative); Clarity Extra Turbid (Clear); Glucose, Urine (Dipstick) Normal (Negative); Leukocyte 75 Leu/uL (Negative); Nitrite Negative (Negative); Protein, Urine (Dipstick) 20 mg/dL (Neg-Trace); Urobilinogen Normal mg/dL (Less than 2)
[2020-01-20 18:27] LABS: Pregnancy Test - Urine (BHCG) Negative (Negative)
[2020-01-20 18:28] LABS: Pregu Control Background? CLEAR/WHITE (CLR/WHITE); Pregu Control Bar Appear? YES (CONTROL BAR); Specific Gravity 1.019 (1.002-1.036)
[2020-01-20 18:37] LABS: Bacteria/HPF None Seen HPF (None Seen)
[2020-01-20 18:45] LABS: ALT (SGPT) 18 U/L (8-55); AST (SGOT) 21 U/L (5-34); Albumin 4.5 g/dL (3.5-5.0); Alkaline Phosphatase 94 U/L (40-110); Anion Gap 16 mmol/L (10-20); BUN (Urea Nitrogen) 7 mg/dL (7.0-18.7); Bilirubin, Total 0.2 mg/dL (0.2-1.2); Calc. Creatinine Clearance 0 mL/min (70-130); Calcium 9.7 mg/dL (7.8-10.44); Carbon Dioxide 27 mmol/L (22-29); Chloride 102 mmol/L (98-107); Estimated GFR-MDRD Greater than 90; Globulin 2.6 g/dL (2.4-3.5); Glucose 87 mg/dL (70-105); Potassium 3.7 mmol/L (3.5-5.1); Protein, Total 7.1 g/dL (6.0-8.3); Sodium 141 mmol/L (136-145)
[2020-01-23 01:18] LABS: Chlamydia by PCR Not Detected (NotDetected); GC by PCR Not Detected (NotDetected)
--- NOTE | 2020-01-24 12:23 | EKG ---
Test Reason : Blood Pressure : / mmHG Vent. Rate : 104 BPM Atrial Rate : 104 BPM P-R Int : 126 ms QRS Dur : 074 ms QT Int : 334 ms P-R-T Axes : 069 059 064 degrees QTc Int : 439 ms Sinus tachycardia Otherwise normal ECG Confirmed by MARLENY GLASS ([id number]), food editor ADRIANA CROFT ([id number]) on 01/24/2020 12:23:31 PM Referred By: Confirmed By:MARLENY Kirby
== END 2020-01-20 19:29 | disposition home or self-care (01) ==
LOC: ERS 16:26
DX: N93.9 Abnormal uterine and vaginal bleeding, unspecified (principal); R00.0 Tachycardia, unspecified; F17.210 Nicotine dependence, cigarettes, uncomplicated
CPT/HCPCS: 80053; 81003; 81015; 81025; 84443; 85025; 86850; 86900; 86901; 87491; 87591; 93005; 96360

== ENCOUNTER 2020-01-25 16:16 | Emergency (ER) | payer SELFPAY ==
[2020-01-25 17:01] LABS: #Basophils 0.1 thou/uL (0.0-0.2); #Eosinphils 0.2 thou/uL (0.0-0.7); #Lymphocytes 2.1 thou/uL (1.20-3.40); #Monocytes 0.7 thou/uL (0.11-0.59); #Neutrophils 5.3 thou/uL (1.40-6.50); %Basophils 0.7 % (0.0-1.0); %Eosinophils 2.4 % (0.0-10.0); %Lymphocytes 24.7 % (21.0-51.0); %Neutrophils 64.1 % (42.0-75.0); Mean Corpuscular HGB CONC 31.8 g/dL (32.0-36.0); Mean Corpuscular Volume 81.6 fL (78.0-98.0); Mean Platelet Volume 6.6 fL (7.4-10.4); Platelet Count 396 thou/uL (130-400); RBC Distribution Width 16.1 % (11.5-14.5); Red Blood Cell (RBC) Count 4.23 mill/uL (4.20-5.40); White Blood Cell (WBC) Count 8.3 thou/uL (4.8-10.8)
[2020-01-25 17:04] LABS: BHCG - Serum Negative (NEGATIVE); Pregs Control Background? CLEAR/WHITE (CLR/WHITE); Pregs Control Bar Appear? YES (CONTROL BAR)
--- NOTE | 2020-01-25 18:07 | ULT ---
Ultrasound of the pelvis: 01/25/2020 COMPARISON:10/01/2019 HISTORY:Vaginal bleeding since miscarriage on January 05, negative test today TECHNIQUE: Multiplanar grayscale sonographic imaging of the pelvis obtained with transabdominal. Ovar ies are assessed with Doppler interrogation including color flow and spectral analysis. FINDINGS: The uterus measures7.8 x 3.9 x 4.9 cm and demonstrates an endometrial thickness of7 mm. The right ovary measures3.5 x 2.0 x 2.1 cm. The left ovary measures3.6 x 3.1 x 2.6 cm. No free fluid is noted within the pelvis. There is echogenic debris layering within the urinary bladd er. No ovarian or adnexal mass. The ovaries demonstrate normal blood flow. IMPRESSION:Small volume debris within the urinary bladder. Correlation with urinalysis suggested. Pel airam ultrasound is otherwise unremarkable..
== END 2020-01-25 18:42 | disposition home or self-care (01) ==
LOC: ERS 16:16
DX: N93.8 Other specified abnormal uterine and vaginal bleeding (principal); F17.210 Nicotine dependence, cigarettes, uncomplicated; Z79.899 Other long term (current) drug therapy
CPT/HCPCS: 36415; 76856; 84703; 85025; 86850; 86900; 86901; 93976; 96360

== ENCOUNTER 2020-09-23 10:36 | Emergency (ER) | payer SELFPAY ==
[2020-09-23 11:26] LABS: #Basophils 0.1 thou/uL (0.0-0.2); #Eosinphils 0.1 thou/uL (0.0-0.7); #Lymphocytes 1.8 thou/uL (1.20-3.40); #Monocytes 1.2 thou/uL (0.11-0.59); %Basophils 0.4 % (0.0-1.0); %Eosinophils 0.7 % (0.0-10.0); %Lymphocytes 11.3 % (21.0-51.0); %Monocytes 7.6 % (0.0-10.0); Hemoglobin 11.4 g/dL (12.0-16.0); Mean Corpuscular HGB CONC 30.2 g/dL (32.0-36.0); Mean Corpuscular Hemoglobin 23.9 pg (27.0-31.0); Mean Corpuscular Volume 78.9 fL (78.0-98.0); Mean Platelet Volume 7.7 fL (7.4-10.4); Platelet Count 330 thou/uL (130-400); RBC Distribution Width 16.5 % (11.5-14.5); White Blood Cell (WBC) Count 16.3 thou/uL (4.8-10.8)
[2020-09-23 11:38] LABS: BHCG - Serum Negative (NEGATIVE); Pregs Control Background? CLEAR/WHITE (CLR/WHITE); Pregs Control Bar Appear? YES (CONTROL BAR)
[2020-09-23 11:40] LABS: Bilirubin Negative (Negative); Blood, Urine Negative (Negative); Glucose, Urine (Dipstick) Negative (Negative); Ketone, Urine Negative (Negative); Leukocyte Trace (Negative); Nitrite Negative (Negative); Protein, Urine (Dipstick) Negative (Neg-Trace); Urobilinogen 0.2 mg/dL (Less than 2); pH, Urine 8.5 (5.0-9.0)
[2020-09-23 11:42] LABS: Clarity Turbid (Clear)
[2020-09-23 11:52] LABS: Bacteria/HPF 1+ HPF (None Seen); RBC/HPF 0-3 HPF (0-3); Squamous Epithelial 0-3 HPF (0-3); WBC/HPF 21-50 HPF (0-3)
[2020-09-23] MEDS ORDERED: Ketorolac Tromethamine 30 MG/ML VIAL ONE (12:08)
[2020-09-23] MEDS ORDERED: cefTRIAXone\\ROCEPHIN 1 GM VIAL ONE (12:08)
[2020-09-23 12:10] LABS: ALT (SGPT) 10 U/L (8-55); AST (SGOT) 16 U/L (5-34); Albumin 4.1 g/dL (3.5-5.0); Alkaline Phosphatase 82 U/L (40-110); Anion Gap 12 mmol/L (10-20); BUN (Urea Nitrogen) 10 mg/dL (7.0-18.7); Bilirubin, Total 0.4 mg/dL (0.2-1.2); CK (CPK) 639 U/L (29-168); Calc. Creatinine Clearance 0 mL/min (70-130); Calcium 9.3 mg/dL (7.8-10.44); Carbon Dioxide 26 mmol/L (22-29); Chloride 104 mmol/L (98-107); Estimated GFR-MDRD Greater than 90; Globulin 2.8 g/dL (2.4-3.5); Glucose 78 mg/dL (70-105); Potassium 3.8 mmol/L (3.5-5.1); Protein, Total 6.9 g/dL (6.0-8.3); Sodium 138 mmol/L (136-145)
--- NOTE | 2020-09-23 12:50 | ULT ---
EXAM: Pelvic ultrasound HISTORY: Bilateral pelvic pain with history of ovarian torsion COMPARISON: None TECHNIQUE: Multiple grayscale and color Doppler images were obtained in a transabdominal pelvic ultra sound. Spectral analysis of the Doppler waveforms of the ovaries were performed. FINDINGS: CERVIX: No evidence of nabothian cysts. UTERUS: Normal in size without focal abnormality. ENDOMETRIAL STRIPE: 6 mm. No free fluid is seen in the pelvis. RIGHT OVARY: Normal flow without focal mass. LEFT OVARY: Normal flow without focal mass. IMPRESSION: No significant pelvic abnormality
[2020-09-26 15:02] LABS: Chlamydia by PCR DETECTED (NotDetected); GC by PCR DETECTED (NotDetected)
== END 2020-09-23 13:46 | disposition home or self-care (01) ==
LOC: ERS 10:36
DX: N10 Acute pyelonephritis (principal); F17.210 Nicotine dependence, cigarettes, uncomplicated
CPT/HCPCS: 36415; 76856; 80053; 81003; 81015; 82550; 84703; 85025; 87077; 87086; 87480; 87491; 87510; 87591; 87660; 93976; 96365; 96375; J0696; J1885

== ENCOUNTER 2020-11-11 13:54 | Emergency (ER) | payer SELFPAY | END 2020-11-11 14:22 | disposition home or self-care (01) | LOC: ERS 13:54 | DX: L01.00 Impetigo, unspecified (principal); F17.210 Nicotine dependence, cigarettes, uncomplicated; Z79.899 Other long term (current) drug therapy | CPT/HCPCS: 99282 ==

== ENCOUNTER 2021-03-20 02:11 | Emergency (ER) | payer SELFPAY ==
[2021-03-20 02:36] LABS: #Basophils 0.1 thou/uL (0.0-0.2); #Eosinphils 0.1 thou/uL (0.0-0.7); #Lymphocytes 2.4 thou/uL (1.20-3.40); #Monocytes 0.7 thou/uL (0.11-0.59); #Neutrophils 5.1 thou/uL (1.40-6.50); %Basophils 0.6 % (0.0-1.0); %Eosinophils 0.8 % (0.0-10.0); %Lymphocytes 28.8 % (21.0-51.0); %Monocytes 8.5 % (0.0-10.0); %Neutrophils 61.3 % (42.0-75.0); Hemoglobin 13.2 g/dL (12.0-16.0); Mean Corpuscular Hemoglobin 30.5 pg (27.0-31.0); Mean Corpuscular Volume 89.9 fL (78.0-98.0); Mean Platelet Volume 6.6 fL (7.4-10.4); Platelet Count 307 thou/uL (130-400); RBC Distribution Width 13.4 % (11.5-14.5); Red Blood Cell (RBC) Count 4.34 mill/uL (4.20-5.40); White Blood Cell (WBC) Count 8.4 thou/uL (4.8-10.8)
[2021-03-20 02:46] LABS: BHCG - Serum Negative (NEGATIVE); Pregs Control Background? CLEAR/WHITE (CLR/WHITE); Pregs Control Bar Appear? YES (CONTROL BAR)
[2021-03-20 03:02] LABS: Bilirubin Negative (Negative); Blood, Urine 2+ (Negative); Clarity Turbid (Clear); Glucose, Urine (Dipstick) Normal (Negative); Ketone, Urine Negative (Negative); Leukocyte Negative Leu/uL (Negative); Nitrite Negative (Negative); Protein, Urine (Dipstick) Negative (Neg-Trace); RBC/HPF 0-3 HPF (0-3); Specific Gravity, Urine 1.017 (1.002-1.036); Squamous Epithelial None Seen HPF (0-3); Urobilinogen Normal mg/dL (Less than 2); WBC/HPF 0-3 HPF (0-3); pH, Urine 7.5 (5.0-9.0)
[2021-03-20 03:03] LABS: Bacteria/HPF 1+ HPF (None Seen)
== END 2021-03-20 03:09 | disposition home or self-care (01) ==
LOC: ERS 02:11
DX: N93.9 Abnormal uterine and vaginal bleeding, unspecified (principal); F17.210 Nicotine dependence, cigarettes, uncomplicated
CPT/HCPCS: 36415; 81003; 81015; 84703; 85025; 86900; 86901; 99284

== ENCOUNTER 2021-09-06 23:31 | Inpatient (IN) | payer MEDICAID, OTHER ==
[2021-09-06] MEDS ORDERED: Ondansetron PF 4 MG/2 ML Vial ONE (23:55)
[2021-09-06] MEDS ORDERED: Ketorolac Tromethamine 30 MG/ML VIAL ONE (23:55)
[2021-09-07 00:07] LABS: Hemoglobin 11.4 g/dL (12.0-16.0); Mean Corpuscular HGB CONC 32.7 g/dL (32.0-36.0); Mean Corpuscular Hemoglobin 26.5 pg (27.0-31.0); Mean Corpuscular Volume 80.9 fL (78.0-98.0); Platelet Count 382 thou/uL (130-400); RBC Distribution Width 16.7 % (11.5-14.5); White Blood Cell (WBC) Count 21.4 thou/uL (4.8-10.8)
[2021-09-07 00:15] LABS: INR-International Normal Ratio 1.1; PTT 39.9 sec (22.9-36.1); Prothrombin Time 14.4 sec (12.0-14.7)
[2021-09-07 00:18] LABS: BHCG - Serum Negative (NEGATIVE); Pregs Control Background? CLEAR/WHITE (CLR/WHITE); Pregs Control Bar Appear? YES (CONTROL BAR)
[2021-09-07 00:20] LABS: ALT (SGPT) 24 U/L (8-55); AST (SGOT) 18 U/L (5-34); Albumin 3.8 g/dL (3.5-5.0); Alkaline Phosphatase 100 U/L (40-110); Anion Gap 12 mmol/L (10-20); BUN (Urea Nitrogen) 11 mg/dL (7.0-18.7); Band 3 % (5-11); Bilirubin, Total 0.5 mg/dL (0.2-1.2); Calc. Creatinine Clearance 0 mL/min (70-130); Calcium 9.7 mg/dL (7.8-10.44); Carbon Dioxide 29 mmol/L (22-29); Chloride 96 mmol/L (98-107); Globulin 3.7 g/dL (2.4-3.5); Glucose 95 mg/dL (70-105); Lymphocytes 11 % (21-51); MDiff Complete? YES; Monocytes 6 % (0-10); Neutrophil 80 % (42-75); Potassium 3.5 mmol/L (3.5-5.1); Protein, Total 7.5 g/dL (6.0-8.3); Sodium 133 mmol/L (136-145)
[2021-09-07 00:30] LABS: Bacteria/HPF None Seen HPF (None Seen); Bilirubin Negative (Negative); Blood, Urine Negative (Negative); Clarity Extra Turbid (Clear); Glucose, Urine (Dipstick) Normal (Negative); Ketone, Urine Negative (Negative); Leukocyte 250 Leu/uL (Negative); Nitrite Negative (Negative); Protein, Urine (Dipstick) 10 mg/dL (Neg-Trace); RBC/HPF 0-3 HPF (0-3); Specific Gravity, Urine 1.016 (1.002-1.036); Squamous Epithelial 0-3 HPF (0-3); Urobilinogen Normal mg/dL (Less than 2)
[2021-09-07] MEDS ORDERED: metroNIDAZOLE 500 MG/100 ML BAG ONE (02:33)
[2021-09-07] MEDS ORDERED: Piperacillin/Tazobactam 3.375 GM VIAL ONE ×2 (02:33→06:27)
[2021-09-07] MEDS ORDERED: Morphine 4 MG/ML VIAL ONE ×2 (03:19→11:31)
[2021-09-07] MEDS ORDERED: Ondansetron ODT 4 MG TAB PO PRN (04:21)
[2021-09-07] MEDS ORDERED: HYDROcodone/Acetaminophen 5/325 mg Tablet PO PRN (04:21)
[2021-09-07] MEDS: Lactated Ringer's 1,000 ML IV SCH ×2 (05:07→18:07)
[2021-09-07] MEDS ORDERED: Ibuprofen 200 MG TAB ONE ×2 (05:10→11:33)
[2021-09-07] MEDS: Ibuprofen 600 MG TAB PO SCH ×4 (05:12→21:42)
[2021-09-07] MEDS: Piperacillin/Tazobactam 3.375 GM in Sodium Chloride 0.9% 100 ML IVPB SCH ×3 (06:29→21:41)
[2021-09-07 07:16] LABS: SARS-CoV-2 NAA Rapid Test Not Detected (NotDetected)
[2021-09-07] MEDS ORDERED: Polyethylene Glycol 3350 17 GM Packet PO SCH ×2 (09:00→18:30)
[2021-09-07] MEDS ORDERED: Morphine 2 MG/ML VIAL SLOW IVP PRN (09:41)
[2021-09-07] MEDS ORDERED: Iopamidol-370 76% 500 ML 1 ML ONE (10:06)
[2021-09-07 10:57] LABS: HIV (1/2) Antibody/Antigen Non-Reactive (NonReactive); HIV 1/2 INDEX 0.06 S/CO (<1.00)
[2021-09-07 12:58] LABS: Syphilis Antibody Nonreactive (Nonreactive); Syphilis Antibody Index 0.03 S/CO (<1.00 Non-Reactive)
[2021-09-07 13:55] VITALS: BMI 21.9
[2021-09-07] MEDS ORDERED: FLU VACC QS2021-22(6MOS UP)/PF 60 MCG/0.5 ML SYRINGE IM ONE (14:15)
[2021-09-08] MEDS: Morphine 4 MG/ML VIAL SLOW IVP PRN ×3 (02:25→19:48)
[2021-09-08] MEDS: Ibuprofen 600 MG TAB PO SCH ×2 (05:17→10:39)
[2021-09-08] MEDS: Piperacillin/Tazobactam 3.375 GM in Sodium Chloride 0.9% 100 ML IVPB SCH (05:18)
[2021-09-08] MEDS: Lactated Ringer's 1,000 ML IV SCH ×3 (06:05→22:20)
[2021-09-08] MEDS: Polyethylene Glycol 3350 17 GM Packet PO SCH (07:57)
[2021-09-08 10:17] LABS: #Eosinphils 0.3 thou/uL (0.0-0.7); #Lymphocytes 1.8 thou/uL (1.20-3.40); #Monocytes 0.8 thou/uL (0.11-0.59); #Neutrophils 6.8 thou/uL (1.40-6.50); %Basophils 0.1 % (0.0-1.0); %Eosinophils 3.6 % (0.0-10.0); %Lymphocytes 18.2 % (21.0-51.0); %Monocytes 8.1 % (0.0-10.0); %Neutrophils 70.1 % (42.0-75.0); Hemoglobin 9.9 g/dL (12.0-16.0); Mean Corpuscular HGB CONC 31.7 g/dL (32.0-36.0); Mean Corpuscular Hemoglobin 26.3 pg (27.0-31.0); Mean Corpuscular Volume 83.1 fL (78.0-98.0); Mean Platelet Volume 6.9 fL (7.4-10.4); Platelet Count 298 thou/uL (130-400); RBC Distribution Width 16.5 % (11.5-14.5); Red Blood Cell (RBC) Count 3.75 mill/uL (4.20-5.40); White Blood Cell (WBC) Count 9.7 thou/uL (4.8-10.8)
[2021-09-08 10:26] LABS: Anion Gap 13 mmol/L (10-20); BUN (Urea Nitrogen) 7 mg/dL (7.0-18.7); Calc. Creatinine Clearance 91 mL/min (70-130); Calcium 8.3 mg/dL (7.8-10.44); Carbon Dioxide 23 mmol/L (22-29); Chloride 107 mmol/L (98-107); Glucose 69 mg/dL (70-105); Potassium 3.8 mmol/L (3.5-5.1); Sodium 139 mmol/L (136-145)
[2021-09-08] MEDS: Ketorolac Tromethamine 30 MG/ML VIAL IVP SCH ×3 (11:06→23:39)
[2021-09-08] MEDS: Ampicillin/Sulbactam 3 GM in Sodium Chloride 0.9% 100 ML IVPB SCH ×2 (14:39→19:49)
[2021-09-08] MEDS: Nicotine 7 MG PATCH TD SCH (15:30)
[2021-09-08] MEDS: Clindamycin/D5W 900 MG in Premix Bag 1 BAG IVPB SCH (23:40)
[2021-09-09] MEDS: Ampicillin/Sulbactam 3 GM in Sodium Chloride 0.9% 100 ML IVPB SCH ×4 (02:19→20:58)
[2021-09-09] MEDS: Morphine 4 MG/ML VIAL SLOW IVP PRN ×2 (02:19→21:45)
[2021-09-09] MEDS: Clindamycin/D5W 900 MG in Premix Bag 1 BAG IVPB SCH ×3 (05:14→23:45)
[2021-09-09] MEDS: Ketorolac Tromethamine 30 MG/ML VIAL IVP SCH ×3 (05:14→17:36)
[2021-09-09 07:08] LABS: Hemoglobin 9.6 g/dL (12.0-16.0); Mean Corpuscular HGB CONC 32.8 g/dL (32.0-36.0); Mean Corpuscular Hemoglobin 26.8 pg (27.0-31.0); Mean Corpuscular Volume 81.6 fL (78.0-98.0); Mean Platelet Volume 6.7 fL (7.4-10.4); Platelet Count 339 thou/uL (130-400); RBC Distribution Width 16.4 % (11.5-14.5); White Blood Cell (WBC) Count 8.7 thou/uL (4.8-10.8)
[2021-09-09 07:18] LABS: Anion Gap 13 mmol/L (10-20); BUN (Urea Nitrogen) 6 mg/dL (7.0-18.7); Calc. Creatinine Clearance 94 mL/min (70-130); Calcium 7.8 mg/dL (7.8-10.44); Carbon Dioxide 20 mmol/L (22-29); Chloride 107 mmol/L (98-107); Glucose 145 mg/dL (70-105); Potassium 3.7 mmol/L (3.5-5.1); Sodium 136 mmol/L (136-145)
[2021-09-09] MEDS: Acetaminophen 325 MG TAB PO PRN (08:19)
[2021-09-09] MEDS: Polyethylene Glycol 3350 17 GM Packet PO SCH ×2 (08:19→21:02)
[2021-09-09] MEDS: Ondansetron PF 4 MG/2 ML Vial IVP PRN (08:19)
[2021-09-09] MEDS: Lactated Ringer's 1,000 ML IV SCH ×2 (08:20→12:57)
[2021-09-09 08:26] LABS: Band 2 % (5-11); Eosinophils 5 % (0-10); Lymphocytes 28 % (21-51); MDiff Complete? YES; Monocytes 9 % (0-10); Neutrophil 54 % (42-75); Platelet Morphology Comment Appears Adequate; Polychromasia SLIGHT = 2-3 cells (100X) (0-2/hpf); Reactive Lymphocytes 1 % (0-10)
[2021-09-09] MEDS: Nicotine 7 MG PATCH TD SCH (14:19)
[2021-09-09 18:19] LABS: Chlam.trachomatis by PCR,Urine DETECTED (NotDetected)
[2021-09-10] MEDS ORDERED: Glycerin Adult Supp. (24 ct jar) PR SCH (00:45)
[2021-09-10] MEDS: Ketorolac Tromethamine 30 MG/ML VIAL IVP SCH ×5 (00:53→23:18)
[2021-09-10] MEDS: Ampicillin/Sulbactam 3 GM in Sodium Chloride 0.9% 100 ML IVPB SCH ×4 (02:06→20:29)
[2021-09-10 06:23] LABS: #Eosinphils 0.4 thou/uL (0.0-0.7); #Lymphocytes 1.9 thou/uL (1.20-3.40); #Monocytes 0.6 thou/uL (0.11-0.59); #Neutrophils 4.1 thou/uL (1.40-6.50); %Basophils 0.6 % (0.0-1.0); %Eosinophils 5.2 % (0.0-10.0); %Monocytes 8.1 % (0.0-10.0); %Neutrophils 59.1 % (42.0-75.0); Hemoglobin 9.9 g/dL (12.0-16.0); Mean Corpuscular HGB CONC 31.1 g/dL (32.0-36.0); Mean Corpuscular Hemoglobin 25.7 pg (27.0-31.0); Mean Corpuscular Volume 82.7 fL (78.0-98.0); Mean Platelet Volume 6.5 fL (7.4-10.4); Platelet Count 493 thou/uL (130-400); RBC Distribution Width 16.4 % (11.5-14.5); Red Blood Cell (RBC) Count 3.85 mill/uL (4.20-5.40); White Blood Cell (WBC) Count 6.9 thou/uL (4.8-10.8)
[2021-09-10] MEDS: Clindamycin/D5W 900 MG in Premix Bag 1 BAG IVPB SCH ×2 (06:25→12:33)
[2021-09-10 06:26] LABS: Anion Gap 14 mmol/L (10-20); BUN (Urea Nitrogen) 12 mg/dL (7.0-18.7); Calc. Creatinine Clearance 100 mL/min (70-130); Calcium 8.9 mg/dL (7.8-10.44); Carbon Dioxide 26 mmol/L (22-29); Chloride 105 mmol/L (98-107); Glucose 90 mg/dL (70-105); Potassium 4.5 mmol/L (3.5-5.1); Sodium 140 mmol/L (136-145)
[2021-09-10] MEDS: Polyethylene Glycol 3350 17 GM Packet PO SCH ×2 (08:01→21:50)
[2021-09-10] MEDS: Lactated Ringer's 1,000 ML IV SCH (08:02)
[2021-09-10] MEDS: Nicotine 7 MG PATCH TD SCH (14:35)
[2021-09-10] MEDS: Acetaminophen 325 MG TAB PO PRN (21:54)
[2021-09-11] MEDS: Clindamycin/D5W 900 MG in Premix Bag 1 BAG IVPB SCH ×3 (00:47→13:08)
[2021-09-11] MEDS: Ampicillin/Sulbactam 3 GM in Sodium Chloride 0.9% 100 ML IVPB SCH ×3 (02:42→16:38)
[2021-09-11] MEDS: Ondansetron PF 4 MG/2 ML Vial IVP PRN (06:19)
[2021-09-11] MEDS: Ketorolac Tromethamine 30 MG/ML VIAL IVP SCH (06:19)
[2021-09-11] MEDS: Polyethylene Glycol 3350 17 GM Packet PO SCH (08:20)
[2021-09-11] MEDS ORDERED: Senokot 8.6 MG TAB PO SCH ×3 (10:15→21:00)
[2021-09-11] MEDS ORDERED: Ibuprofen 600 MG TAB PO SCH (12:00)
[2021-09-11 15:59] VITALS: TEMP 98.4
[2021-09-11 15:59] LABS: #Eosinphils 0.3 thou/uL (0.0-0.7); #Lymphocytes 2.2 thou/uL (1.20-3.40); #Monocytes 0.6 thou/uL (0.11-0.59); #Neutrophils 4.8 thou/uL (1.40-6.50); %Basophils 0.6 % (0.0-1.0); %Lymphocytes 27.7 % (21.0-51.0); %Monocytes 7.2 % (0.0-10.0); %Neutrophils 60.6 % (42.0-75.0); Hemoglobin 10.8 g/dL (12.0-16.0); Mean Corpuscular HGB CONC 32.8 g/dL (32.0-36.0); Mean Corpuscular Hemoglobin 26.7 pg (27.0-31.0); Mean Corpuscular Volume 81.5 fL (78.0-98.0); Mean Platelet Volume 6.2 fL (7.4-10.4); Platelet Count 585 thou/uL (130-400); RBC Distribution Width 16.5 % (11.5-14.5); Red Blood Cell (RBC) Count 4.04 mill/uL (4.20-5.40); White Blood Cell (WBC) Count 7.9 thou/uL (4.8-10.8)
[2021-09-11] MEDS ORDERED: metroNIDAZOLE 500 MG TAB PO SCH (16:19)
[2021-09-11] MEDS ORDERED: Doxycycline 100 MG CAP PO SCH (16:19)
[2021-09-11] MEDS: Nicotine 7 MG PATCH TD SCH (16:23)
[2021-09-11 16:32] LABS: Anion Gap 15 mmol/L (10-20); BUN (Urea Nitrogen) 10 mg/dL (7.0-18.7); Calc. Creatinine Clearance 73 mL/min (70-130); Calcium 9.3 mg/dL (7.8-10.44); Carbon Dioxide 28 mmol/L (22-29); Chloride 103 mmol/L (98-107); Glucose 103 mg/dL (70-105); Potassium 4.5 mmol/L (3.5-5.1); Sodium 141 mmol/L (136-145)
[2021-09-11 18:04] VITALS: BP 120/75
== END 2021-09-11 18:05 | disposition home or self-care (01) | DRG 872 ==
LOC: ERS 23:31 → ERHOLD 09-07 02:47 → OBSVTOIN 09-07 02:47 → T4-B 09-07 13:13
PROVIDERS: ADMIT Student in an Organized Health Care Education/Training Program; ATTEND Hospitalist
DX: A41.9 Sepsis, unspecified organism (principal); A09 Infectious gastroenteritis and colitis, unspecified; E28.2 Polycystic ovarian syndrome; F17.210 Nicotine dependence, cigarettes, uncomplicated; F41.9 Anxiety disorder, unspecified; N80.9 Endometriosis, unspecified; Z20.822 Contact with and (suspected) exposure to COVID-19; N73.9 Female pelvic inflammatory disease, unspecified; F12.10 Cannabis abuse, uncomplicated; F15.10 Other stimulant abuse, uncomplicated; I10 Essential (primary) hypertension; Z79.899 Other long term (current) drug therapy; Z88.8 Allergy status to other drugs, medicaments and biological substances; Z88.1 Allergy status to other antibiotic agents
CPT/HCPCS: 36415; 74176; 74177; 76856; 80048; 80053; 81003; 81015; 83605; 84145; 84703; 85025; 85610; 85730; 86780; 87040; 87389; 87491; 87591; 96365; 96368; 96375; J0295; J1885; J2270; J2405; J2543; J3490; J7120; Q9967; U0002

== ENCOUNTER 2022-03-07 20:07 | Emergency (ER) | payer OTHER ==
[2022-03-07] MEDS ORDERED: Lidocaine 4% Cream 5 GM TUBE w/ Tegaderm ONE (21:08)
[2022-03-07] MEDS ORDERED: Xylocaine 1% w/ Epi 1:100K 10 ML VIAL ONE (21:08)
[2022-03-07] MEDS ORDERED: Ketorolac Tromethamine 30 MG/ML VIAL ONE (21:08)
== END 2022-03-07 22:30 | disposition home or self-care (01) ==
LOC: ERS 20:07
DX: N76.4 Abscess of vulva (principal); F17.210 Nicotine dependence, cigarettes, uncomplicated
CPT/HCPCS: 56405; 96372; J1885

== ENCOUNTER 2022-06-15 19:53 | Emergency (ER) | payer OTHER | END 2022-06-15 20:30 | disposition home or self-care (01) | LOC: ERS 19:53 | DX: J02.0 Streptococcal pharyngitis (principal); F17.210 Nicotine dependence, cigarettes, uncomplicated | CPT/HCPCS: 99283 ==

== ENCOUNTER 2022-06-18 14:05 | Emergency (ER) | payer OTHER | END 2022-06-18 14:50 | disposition home or self-care (01) | LOC: ERS 14:05 | DX: S60.221A Contusion of right hand, initial encounter (principal); F17.210 Nicotine dependence, cigarettes, uncomplicated; W51.XXXA Accidental striking against or bumped into by another person, initial encounter ==

== ENCOUNTER 2022-11-03 05:25 | Emergency (ER) | payer OTHER ==
[2022-11-03 06:13] LABS: #Eosinphils 0.2 thou/uL (0.0-0.7); #Lymphocytes 2.8 thou/uL (1.20-3.40); #Monocytes 0.8 thou/uL (0.11-0.59); #Neutrophils 6.7 thou/uL (1.40-6.50); %Basophils 0.4 % (0.0-1.0); %Eosinophils 1.7 % (0.0-10.0); %Lymphocytes 26.6 % (21.0-51.0); %Monocytes 7.9 % (0.0-10.0); %Neutrophils 63.4 % (42.0-75.0); Mean Corpuscular HGB CONC 32.5 g/dL (32.0-36.0); Mean Corpuscular Hemoglobin 30.4 pg (27.0-31.0); Mean Corpuscular Volume 93.5 fl (78.0-98.0); Mean Platelet Volume 6.7 fL (7.4-10.4); Platelet Count 298 10x3/uL (130-400); RBC Distribution Width 12.6 % (11.5-14.5); Red Blood Cell (RBC) Count 4.27 mill/uL (4.20-5.40); White Blood Cell (WBC) Count 10.6 10x3/uL (4.8-10.8)
[2022-11-03] MEDS ORDERED: Acetaminophen 500 MG TAB ONE (06:16)
[2022-11-03 06:23] LABS: BHCG - Serum Negative (NEGATIVE); Pregs Control Background? CLEAR/WHITE (CLR/WHITE); Pregs Control Bar Appear? YES (CONTROL BAR)
[2022-11-03 06:35] LABS: ALT (SGPT) 16 U/L (8-55); AST (SGOT) 16 U/L (5-34); Albumin 4.1 g/dL (3.5-5.0); Alkaline Phosphatase 107 U/L (40-110); Anion Gap 14 mmol/L (10-20); BUN (Urea Nitrogen) 12 mg/dL (7.0-18.7); Bilirubin, Total 0.2 mg/dL (0.2-1.2); Calc. Creatinine Clearance 0 mL/min (70-130); Calcium 9.8 mg/dL (7.8-10.44); Carbon Dioxide 28 mmol/L (22-29); Chloride 102 mmol/L (98-107); Estimated GFR 113; Globulin 2.8 g/dL (2.4-3.5); Glucose 86 mg/dL (70-105); Potassium 3.6 mmol/L (3.5-5.1); Protein, Total 6.9 g/dL (6.0-8.3); Sodium 140 mmol/L (136-145)
[2022-11-03 06:46] LABS: Bilirubin Negative (Negative); Blood, Urine Moderate (Negative); Glucose, Urine (Dipstick) Negative (Negative); Ketone, Urine Negative (Negative); Leukocyte Negative (Negative); Nitrite Negative (Negative); Protein, Urine (Dipstick) 100 mg/dL (Neg-Trace); Urobilinogen 0.2 mg/dL (Less than 2)
[2022-11-03 06:48] LABS: Clarity Bloody (Clear)
[2022-11-03 06:51] LABS: Specific Gravity, Urine 1.025 (1.002-1.036)
[2022-11-03 06:52] LABS: Bacteria/HPF None Seen HPF (None Seen); RBC/HPF Greater than 50 HPF (0-3); Squamous Epithelial 0-3 HPF (0-3); WBC/HPF 0-3 HPF (0-3)
== END 2022-11-03 09:01 | disposition home or self-care (01) ==
LOC: ERS 05:25
DX: N92.0 Excessive and frequent menstruation with regular cycle (principal); L03.012 Cellulitis of left finger; B34.9 Viral infection, unspecified; I10 Essential (primary) hypertension; F17.210 Nicotine dependence, cigarettes, uncomplicated
CPT/HCPCS: 36415; 76856; 80053; 81003; 81015; 84702; 84703; 85025; 86850; 86900; 86901; 96360; 96361

== ENCOUNTER 2022-11-06 19:56 | Inpatient (IN) | payer OTHER ==
[2022-11-06 22:06] LABS: #Eosinphils 0.1 thou/uL (0.0-0.7); #Monocytes 1.1 thou/uL (0.11-0.59); #Neutrophils 7.5 thou/uL (1.40-6.50); %Basophils 0.4 % (0.0-1.0); %Eosinophils 1.2 % (0.0-10.0); %Lymphocytes 25.2 % (21.0-51.0); %Monocytes 9.6 % (0.0-10.0); %Neutrophils 63.5 % (42.0-75.0); Hemoglobin 12.7 g/dL (12.0-16.0); Mean Corpuscular HGB CONC 34.5 g/dL (32.0-36.0); Mean Corpuscular Hemoglobin 31.6 pg (27.0-31.0); Mean Corpuscular Volume 91.8 fl (78.0-98.0); Mean Platelet Volume 6.6 fL (7.4-10.4); Platelet Count 360 10x3/uL (130-400); RBC Distribution Width 12.6 % (11.5-14.5); Red Blood Cell (RBC) Count 4.01 mill/uL (4.20-5.40); White Blood Cell (WBC) Count 11.8 10x3/uL (4.8-10.8)
[2022-11-06 22:13] LABS: Pregnancy Test - Urine (BHCG) Negative (Negative); Pregu Control Background? CLEAR/WHITE (CLR/WHITE); Pregu Control Bar Appear? YES (CONTROL BAR)
[2022-11-06 22:43] LABS: ALT (SGPT) 25 U/L (8-55); AST (SGOT) 23 U/L (5-34); Albumin 4.4 g/dL (3.5-5.0); Alkaline Phosphatase 82 U/L (40-110); Anion Gap 13 mmol/L (10-20); BUN (Urea Nitrogen) 18 mg/dL (7.0-18.7); Bilirubin, Total 0.3 mg/dL (0.2-1.2); Calc. Creatinine Clearance 0 mL/min (70-130); Calcium 9.6 mg/dL (7.8-10.44); Carbon Dioxide 31 mmol/L (22-29); Chloride 100 mmol/L (98-107); Estimated GFR 95; Globulin 2.7 g/dL (2.4-3.5); Glucose 88 mg/dL (70-105); Magnesium 2.3 mg/dL (1.6-2.6); Potassium 3.5 mmol/L (3.5-5.1); Protein, Total 7.1 g/dL (6.0-8.3); Sodium 140 mmol/L (136-145)
[2022-11-07] MEDS ORDERED: Linezolid 600 MG in Premix Bag 1 BAG IVPB SCH (00:45)
[2022-11-07] MEDS ORDERED: cefTRIAXone\\ROCEPHIN 2 GM VIAL ONE (01:12)
[2022-11-07] MEDS ORDERED: Ondansetron PF 4 MG/2 ML Vial IVP PRN (04:12)
[2022-11-07 05:23] LABS: Amphetamine Detected (NotDetected); Barbiturates Screen Not Detected (NotDetected); Benzodiazepine Screen Not Detected (NotDetected); Cocaine Metabolite Screen Not Detected (NotDetected); Methadone Not Detected (NotDetected); Methamphetamine Detected (NotDetected); Opiate Screen Not Detected (NotDetected); Oxycodone Screen Not Detected (NotDetected); Phencyclidine (PCP) Not Detected (NotDetected); THC/Cannabinoid Screen Not Detected (NotDetected); Tricyclic Screen Not Detected (NotDetected)
[2022-11-07 05:47] LABS: #Eosinphils 0.1 thou/uL (0.0-0.7); #Lymphocytes 2.6 thou/uL (1.20-3.40); #Monocytes 0.6 thou/uL (0.11-0.59); #Neutrophils 6.5 thou/uL (1.40-6.50); %Eosinophils 1.2 % (0.0-10.0); %Lymphocytes 26.3 % (21.0-51.0); %Monocytes 6.2 % (0.0-10.0); %Neutrophils 66.3 % (42.0-75.0); Hemoglobin 11.9 g/dL (12.0-16.0); Mean Corpuscular HGB CONC 32.2 g/dL (32.0-36.0); Mean Corpuscular Volume 93.1 fl (78.0-98.0); Mean Platelet Volume 6.9 fL (7.4-10.4); Platelet Count 317 10x3/uL (130-400); RBC Distribution Width 12.6 % (11.5-14.5); Red Blood Cell (RBC) Count 3.98 mill/uL (4.20-5.40); White Blood Cell (WBC) Count 9.8 10x3/uL (4.8-10.8)
[2022-11-07 06:10] LABS: Anion Gap 11 mmol/L (10-20); BUN (Urea Nitrogen) 15 mg/dL (7.0-18.7); Calc. Creatinine Clearance 0 mL/min (70-130); Calcium 8.9 mg/dL (7.8-10.44); Carbon Dioxide 27 mmol/L (22-29); Chloride 102 mmol/L (98-107); Estimated GFR 120; Glucose 146 mg/dL (70-105); Potassium 3.4 mmol/L (3.5-5.1); Sodium 137 mmol/L (136-145)
[2022-11-07] MEDS ORDERED: Potassium Chloride 20 MEQ TAB PO SCH (08:00)
[2022-11-07] MEDS ORDERED: Potassium Chloride 20 MEQ TAB ONE (08:55)
[2022-11-07] MEDS ORDERED: Iopamidol-370 76% 500 ML 1 ML ONE (13:18)
[2022-11-07] MEDS ORDERED: Magnevist 469MG/ML 20 ML VIAL ONE (13:41)
[2022-11-07] MEDS ORDERED: Acetaminophen 325 MG TAB ONE (13:58)
[2022-11-07] MEDS: Acetaminophen 325 MG TAB PO PRN ×2 (14:01→17:51)
[2022-11-07 17:01] VITALS: BMI 20.9
[2022-11-07] MEDS: Nicotine 14 MG PATCH TD SCH (17:06)
[2022-11-07] MEDS: prednisoLONE Acet 0.12% Ophth Soln 5 ml Bottle L EYE SCH ×6 (17:51→22:54)
[2022-11-08] MEDS: cefTRIAXone\\ROCEPHIN 2 GM in Sodium Chloride 0.9% 100 ML IVPB SCH (00:45)
[2022-11-08] MEDS: prednisoLONE Acet 0.12% Ophth Soln 5 ml Bottle L EYE SCH ×6 (01:20→20:40)
[2022-11-08] MEDS: Linezolid 600 MG in Premix Bag 1 BAG IVPB SCH ×2 (01:21→13:18)
[2022-11-08 07:24] LABS: #Eosinphils 0.2 thou/uL (0.0-0.7); #Lymphocytes 1.8 thou/uL (1.20-3.40); #Monocytes 0.7 thou/uL (0.11-0.59); #Neutrophils 3.8 thou/uL (1.40-6.50); %Basophils 0.5 % (0.0-1.0); %Eosinophils 3.1 % (0.0-10.0); %Lymphocytes 26.8 % (21.0-51.0); %Monocytes 11.2 % (0.0-10.0); %Neutrophils 58.5 % (42.0-75.0); Hemoglobin 11.6 g/dL (12.0-16.0); Mean Corpuscular HGB CONC 32.3 g/dL (32.0-36.0); Mean Corpuscular Hemoglobin 30.3 pg (27.0-31.0); Mean Corpuscular Volume 93.7 fl (78.0-98.0); Mean Platelet Volume 6.7 fL (7.4-10.4); Platelet Count 302 10x3/uL (130-400); RBC Distribution Width 12.5 % (11.5-14.5); Red Blood Cell (RBC) Count 3.83 mill/uL (4.20-5.40); White Blood Cell (WBC) Count 6.5 10x3/uL (4.8-10.8)
[2022-11-08 07:35] LABS: Anion Gap 11 mmol/L (10-20); BUN (Urea Nitrogen) 12 mg/dL (7.0-18.7); Calc. Creatinine Clearance 68 mL/min (70-130); Calcium 8.5 mg/dL (7.8-10.44); Carbon Dioxide 26 mmol/L (22-29); Chloride 103 mmol/L (98-107); Estimated GFR 107; Glucose 97 mg/dL (70-105); Potassium 3.9 mmol/L (3.5-5.1); Sodium 136 mmol/L (136-145)
[2022-11-08] MEDS: Nicotine 14 MG PATCH TD SCH (15:41)
[2022-11-09] MEDS: cefTRIAXone\\ROCEPHIN 2 GM in Sodium Chloride 0.9% 100 ML IVPB SCH (00:40)
[2022-11-09] MEDS: prednisoLONE Acet 0.12% Ophth Soln 5 ml Bottle L EYE SCH ×6 (00:41→22:21)
[2022-11-09] MEDS ORDERED: Benzonatate 100 MG CAP PO PRN (01:06)
[2022-11-09] MEDS: Linezolid 600 MG in Premix Bag 1 BAG IVPB SCH ×2 (01:23→14:05)
[2022-11-09 06:29] LABS: #Eosinphils 0.3 thou/uL (0.0-0.7); #Lymphocytes 1.9 thou/uL (1.20-3.40); #Monocytes 0.8 thou/uL (0.11-0.59); #Neutrophils 3.4 thou/uL (1.40-6.50); %Basophils 0.6 % (0.0-1.0); %Eosinophils 4.2 % (0.0-10.0); %Lymphocytes 29.2 % (21.0-51.0); %Monocytes 11.9 % (0.0-10.0); %Neutrophils 54.1 % (42.0-75.0); Hemoglobin 11.9 g/dL (12.0-16.0); Mean Corpuscular HGB CONC 32.5 g/dL (32.0-36.0); Mean Corpuscular Hemoglobin 30.6 pg (27.0-31.0); Mean Corpuscular Volume 94.1 fl (78.0-98.0); Mean Platelet Volume 6.7 fL (7.4-10.4); Platelet Count 322 10x3/uL (130-400); RBC Distribution Width 12.5 % (11.5-14.5); Red Blood Cell (RBC) Count 3.88 mill/uL (4.20-5.40); White Blood Cell (WBC) Count 6.4 10x3/uL (4.8-10.8)
[2022-11-09 06:46] LABS: Anion Gap 12 mmol/L (10-20); BUN (Urea Nitrogen) 11 mg/dL (7.0-18.7); Calc. Creatinine Clearance 77 mL/min (70-130); Calcium 8.7 mg/dL (7.8-10.44); Carbon Dioxide 24 mmol/L (22-29); Chloride 103 mmol/L (98-107); Estimated GFR 123; Glucose 102 mg/dL (70-105); Potassium 3.9 mmol/L (3.5-5.1); Sodium 135 mmol/L (136-145)
[2022-11-09] MEDS: Nicotine 14 MG PATCH TD SCH (15:48)
[2022-11-10] MEDS: cefTRIAXone\\ROCEPHIN 2 GM in Sodium Chloride 0.9% 100 ML IVPB SCH (01:03)
[2022-11-10] MEDS: prednisoLONE Acet 0.12% Ophth Soln 5 ml Bottle L EYE SCH ×5 (01:07→18:05)
[2022-11-10] MEDS: Linezolid 600 MG in Premix Bag 1 BAG IVPB SCH ×2 (03:20→13:45)
[2022-11-10 07:20] LABS: #Monocytes 0.7 thou/uL (0.11-0.59); #Neutrophils 3.1 thou/uL (1.40-6.50); %Basophils 1.4 % (0.0-1.0); %Eosinophils 4.3 % (0.0-10.0); %Lymphocytes 32.4 % (21.0-51.0); %Monocytes 11.7 % (0.0-10.0); %Neutrophils 50.3 % (42.0-75.0); Hemoglobin 11.9 g/dL (12.0-16.0); Mean Corpuscular HGB CONC 32.6 g/dL (32.0-36.0); Mean Corpuscular Hemoglobin 30.5 pg (27.0-31.0); Mean Corpuscular Volume 93.7 fl (78.0-98.0); Mean Platelet Volume 6.7 fL (7.4-10.4); Platelet Count 336 10x3/uL (130-400); RBC Distribution Width 12.5 % (11.5-14.5); Red Blood Cell (RBC) Count 3.88 mill/uL (4.20-5.40); White Blood Cell (WBC) Count 6.2 10x3/uL (4.8-10.8)
[2022-11-10 07:21] LABS: #Basophils 0.1 thou/uL (0.0-0.2); #Eosinphils 0.3 thou/uL (0.0-0.7)
[2022-11-10 07:44] LABS: Anion Gap 11 mmol/L (10-20); BUN (Urea Nitrogen) 8 mg/dL (7.0-18.7); Calc. Creatinine Clearance 89 mL/min (70-130); Calcium 8.3 mg/dL (7.8-10.44); Carbon Dioxide 22 mmol/L (22-29); Chloride 106 mmol/L (98-107); Estimated GFR 127; Glucose 96 mg/dL (70-105); Potassium 3.5 mmol/L (3.5-5.1); Sodium 135 mmol/L (136-145)
[2022-11-10 08:10] VITALS: BP 124/81; TEMP 98.5
[2022-11-10] MEDS: Nicotine 14 MG PATCH TD SCH (13:45)
[2022-11-10] MEDS ORDERED: Cefdinir 300 MG CAP PO SCH (21:00)
[2022-11-10] MEDS ORDERED: Amoxicillin/Potassium Clav 875 MG TAB PO SCH (21:00)
== END 2022-11-10 18:56 | disposition left against medical advice (07) | DRG 603 ==
LOC: ERS 19:56 → ERHOLD 11-07 01:30 → T4-B 11-07 01:43 → OBSVTOIN 11-08 09:44
PROVIDERS: ADMIT Internal Medicine; ATTEND Internal Medicine
DX: L03.213 Periorbital cellulitis (principal); E87.1 Hypo-osmolality and hyponatremia; B30.9 Viral conjunctivitis, unspecified; Z20.822 Contact with and (suspected) exposure to COVID-19; E28.2 Polycystic ovarian syndrome; I10 Essential (primary) hypertension; F17.210 Nicotine dependence, cigarettes, uncomplicated; F15.10 Other stimulant abuse, uncomplicated; F12.10 Cannabis abuse, uncomplicated; Z88.1 Allergy status to other antibiotic agents; Z88.5 Allergy status to narcotic agent; Z79.899 Other long term (current) drug therapy; Z98.890 Other specified postprocedural states; Z82.49 Family history of ischemic heart disease and other diseases of the circulatory system
CPT/HCPCS: 36415; 36416; 70450; 70496; 70498; 70544; 70553; 80048; 80053; 80306; 81025; 83605; 83735; 84443; 84484; 85025; 87040; 93005; 94760; 96374; 96375; A9579; J0696; J2020; J2405; J3490; Q9967; U0003; U0005

== ENCOUNTER 2023-02-09 19:14 | Emergency (ER) | payer OTHER ==
[2023-02-09 19:59] LABS: #Eosinphils 0.1 thou/uL (0.0-0.7); #Lymphocytes 2.2 thou/uL (1.20-3.40); #Monocytes 0.6 thou/uL (0.11-0.59); #Neutrophils 2.3 thou/uL (1.40-6.50); %Basophils 0.6 % (0.0-1.0); %Eosinophils 2.1 % (0.0-10.0); %Lymphocytes 41.7 % (21.0-51.0); %Neutrophils 43.5 % (42.0-75.0); Hemoglobin 12.5 g/dL (12.0-16.0); Mean Corpuscular Hemoglobin 27.1 pg (27.0-31.0); Mean Corpuscular Volume 84.8 fl (78.0-98.0); Mean Platelet Volume 7.4 fL (7.4-10.4); Platelet Count 346 10x3/uL (130-400); RBC Distribution Width 13.9 % (11.5-14.5); Red Blood Cell (RBC) Count 4.61 mill/uL (4.20-5.40); White Blood Cell (WBC) Count 5.3 10x3/uL (4.8-10.8)
[2023-02-09 20:00] LABS: Bilirubin Negative (Negative); Blood, Urine Negative (Negative); Clarity Clear (Clear); Glucose, Urine (Dipstick) Normal (Negative); Ketone, Urine Trace mg/dL (Negative); Leukocyte Negative Leu/uL (Negative); Nitrite Negative (Negative); Protein, Urine (Dipstick) 10 mg/dL (Neg-Trace); Specific Gravity, Urine 1.023 (1.002-1.036); Urobilinogen Normal mg/dL (Less than 2); pH, Urine 7.5 (5.0-9.0)
[2023-02-09 20:01] LABS: Pregnancy Test - Urine (BHCG) Negative (Negative); Pregu Control Background? CLEAR/WHITE (CLR/WHITE); Pregu Control Bar Appear? YES (CONTROL BAR); Specific Gravity 1.023 (1.002-1.036)
[2023-02-09 20:21] LABS: ALT (SGPT) 12 U/L (8-55); AST (SGOT) 16 U/L (5-34); Alkaline Phosphatase 76 U/L (40-110); Anion Gap 11 mmol/L (10-20); BUN (Urea Nitrogen) 10 mg/dL (7.0-18.7); Bilirubin, Total Less than 0.2 mg/dL (0.2-1.2); Calc. Creatinine Clearance 0 mL/min (70-130); Calcium 8.8 mg/dL (7.8-10.44); Carbon Dioxide 28 mmol/L (22-29); Chloride 104 mmol/L (98-107); Estimated GFR 48; Globulin 2.5 g/dL (2.4-3.5); Glucose 104 mg/dL (70-105); Potassium 3.9 mmol/L (3.5-5.1); Protein, Total 6.5 g/dL (6.0-8.3); Sodium 139 mmol/L (136-145)
[2023-02-09 21:00] LABS: Amphetamine Detected (NotDetected); Barbiturates Screen Not Detected (NotDetected); Benzodiazepine Screen Not Detected (NotDetected); Cocaine Metabolite Screen Not Detected (NotDetected); Methadone Not Detected (NotDetected); Methamphetamine Detected (NotDetected); Opiate Screen Not Detected (NotDetected); Oxycodone Screen Not Detected (NotDetected); Phencyclidine (PCP) Not Detected (NotDetected); THC/Cannabinoid Screen Not Detected (NotDetected); Tricyclic Screen Not Detected (NotDetected)
[2023-02-09 21:15] LABS: Acetaminophen Less than 10.0 mcg/mL (10.0-30.0); Alcohol Less than 10 mg/dL (Less than 10); Salicylate Less than 8.0 mg/dL (15.0-30.0)
== END 2023-02-09 23:53 | disposition home or self-care (01) ==
LOC: ERS 19:14
DX: T43.621A Poisoning by amphetamines, accidental (unintentional), initial encounter (principal); R40.0 Somnolence; F17.210 Nicotine dependence, cigarettes, uncomplicated
CPT/HCPCS: 36415; 80053; 80306; 80307; 81003; 81025; 85025; 93005; 96360

== ENCOUNTER 2023-03-24 20:19 | Emergency (ER) | payer OTHER ==
[2023-03-24 21:59] LABS: Bilirubin Negative (Negative); Blood, Urine Negative (Negative); Clarity Extra Turbid (Clear); Glucose, Urine (Dipstick) Normal (Negative); Ketone, Urine Negative (Negative); Leukocyte 500 Leu/uL (Negative); Nitrite Negative (Negative); Protein, Urine (Dipstick) Negative (Neg-Trace); Specific Gravity, Urine 1.018 (1.002-1.036); Squamous Epithelial None Seen HPF (0-3); Urobilinogen Normal mg/dL (Less than 2)
[2023-03-24 22:09] LABS: Bacteria/HPF Rare-Few HPF (None Seen)
[2023-03-24] MEDS ORDERED: Lidocaine 1% MPF 2 ML VIAL ONE (23:45)
[2023-03-24] MEDS ORDERED: cefTRIAXone (ROCEPHIN) 500 MG VIAL ONE (23:45)
[2023-03-26 21:16] LABS: Chlamydia by PCR, EndoCx Swab Not Detected (NotDetected); GC by PCR, EndoCx Swab DETECTED (NotDetected)
== END 2023-03-25 00:17 | disposition home or self-care (01) ==
LOC: ERS 20:19
DX: N76.0 Acute vaginitis (principal); F17.210 Nicotine dependence, cigarettes, uncomplicated
CPT/HCPCS: 76856; 81003; 81015; 87480; 87491; 87510; 87591; 87660; 96372; J0696

== ENCOUNTER 2023-09-06 11:05 | Emergency (ER) | payer OTHER ==
[2023-09-06 11:32] LABS: #Eosinphils 0.2 thou/uL (0.0-0.7); #Monocytes 0.6 thou/uL (0.11-0.59); #Neutrophils 3.2 thou/uL (1.40-6.50); %Basophils 0.7 % (0.0-1.0); %Eosinophils 3.4 % (0.0-10.0); %Lymphocytes 31.7 % (21.0-51.0); Hemoglobin 13.8 g/dL (12.0-16.0); Mean Corpuscular HGB CONC 32.1 g/dL (32.0-36.0); Mean Corpuscular Hemoglobin 28.9 pg (27.0-31.0); Mean Corpuscular Volume 90.1 fl (78.0-98.0); Mean Platelet Volume 9.2 fL (7.4-10.4); Platelet Count 255 10x3/uL (130-400); RBC Distribution Width 14.6 % (11.5-14.5); Red Blood Cell (RBC) Count 4.77 mill/uL (4.20-5.40); White Blood Cell (WBC) Count 5.9 10x3/uL (4.8-10.8)
[2023-09-06 11:33] LABS: Bilirubin Negative (Negative); Blood, Urine Negative (Negative); CAUTI Indications for Culture Dysuria,urgency,freq; Clarity Turbid (Clear); Glucose, Urine (Dipstick) Normal (Negative); Ketone, Urine Negative (Negative); Leukocyte 25 Leu/uL (Negative); Nitrite Negative (Negative); Protein, Urine (Dipstick) Negative (Neg-Trace); RBC/HPF 0-3 HPF (0-3); Specific Gravity, Urine 1.011 (1.002-1.036); Urobilinogen Normal mg/dL (Less than 2); WBC/HPF 0-3 HPF (0-3)
[2023-09-06 11:34] LABS: Bacteria/HPF 1+ HPF (None Seen); Pregnancy Test - Urine (BHCG) Negative (Negative)
[2023-09-06 11:35] LABS: Pregu Control Background? CLEAR/WHITE (CLR/WHITE); Pregu Control Bar Appear? YES (CONTROL BAR); Specific Gravity 1.011 (1.002-1.036)
[2023-09-06 11:36] LABS: Urine Culture Reflex No No
[2023-09-06 11:49] LABS: ALT (SGPT) 12 U/L (8-55); AST (SGOT) 16 U/L (5-34); Albumin 4.7 g/dL (3.5-5.0); Alkaline Phosphatase 69 U/L (40-110); Anion Gap 12 mmol/L (10-20); BUN (Urea Nitrogen) 9 mg/dL (7.0-18.7); Bilirubin, Total 0.4 mg/dL (0.2-1.2); Calc. Creatinine Clearance 0 mL/min (70-130); Calcium 9.3 mg/dL (7.8-10.44); Carbon Dioxide 27 mmol/L (22-29); Chloride 103 mmol/L (98-107); Estimated GFR 114; Globulin 2.2 g/dL (2.4-3.5); Glucose 65 mg/dL (70-105); Potassium 3.8 mmol/L (3.5-5.1); Protein, Total 6.9 g/dL (6.0-8.3); Sodium 138 mmol/L (136-145)
[2023-09-06 11:52] LABS: Troponin I Less than 0.010 ng/mL (< 0.028)
[2023-09-06] MEDS ORDERED: Ibuprofen 200 MG TAB ONE (12:18)
== END 2023-09-06 12:20 | disposition home or self-care (01) ==
LOC: ERS 11:05
DX: R07.9 Chest pain, unspecified (principal); F17.210 Nicotine dependence, cigarettes, uncomplicated
CPT/HCPCS: 36415; 71045; 80053; 81001; 81025; 84484; 85025; 93005

== ENCOUNTER 2025-06-14 16:56 | Emergency (ER) | payer SELFPAY ==
[2025-06-14 18:01] LABS: Pregnancy Test - Urine (BHCG) Negative (Negative); Pregu Control Background? CLEAR/WHITE (CLR/WHITE); Pregu Control Bar Appear? YES (CONTROL BAR)
[2025-06-14 18:17] LABS: #Basophils 0.04 10x3/uL (0.0-0.2); #Eosinophils 0.05 10x3/uL (0.0-0.7); #Monocytes 0.66 10x3/uL (0.11-0.59); #Neutrophils 3.72 10x3/uL (1.40-6.50); %Basophils 0.6 % (0.0-1.0); %Eosinophils 0.7 % (0.0-10.0); %Lymphocytes 34.9 % (21.0-51.0); %Monocytes 9.6 % (0.0-10.0); %Neutrophils 54.1 % (42.0-75.0); Hematocrit 38.1 % (36.0-47.0); Hemoglobin 12.6 g/dL (12.0-16.0); Mean Corpuscular Hemoglobin 29.4 pg (27.0-31.0); Mean Corpuscular Volume 89.0 fL (78.0-98.0); Platelet Count 285 10x3/uL (130-400); Red Blood Cell (RBC) Count 4.28 mill/uL (4.20-5.40); White Blood Cell (WBC) Count 6.88 10x3/uL (4.8-10.8)
[2025-06-14 18:32] LABS: ALT (SGPT) 28 U/L (Less than 34); AST (SGOT) 27 U/L (11-34); Albumin 3.9 g/dL (3.1-4.5); Alkaline Phosphatase 73 U/L (40-110); Anion Gap 16 mmol/L (10-20); BHCG - Serum Negative (NEGATIVE); BUN (Urea Nitrogen) 8 mg/dL (7.0-18.7); Bilirubin, Total 0.5 mg/dL (0.3-1.2); Calc. Creatinine Clearance 0 mL/min (70-130); Calcium 8.8 mg/dL (7.8-10.44); Carbon Dioxide 22 mmol/L (22-29); Chloride 105 mmol/L (98-107); Globulin 3.1 g/dL (2.4-3.5); Glucose 91 mg/dL (70-105); Lipase 14 U/L (8-78); Potassium 3.7 mmol/L (3.5-5.1); Pregs Control Background? CLEAR/WHITE (CLR/WHITE); Pregs Control Bar Appear? YES (CONTROL BAR); Sodium 139 mmol/L (136-145)
[2025-06-14 19:34] LABS: Bacteria/HPF None Seen HPF (None Seen); CAUTI Indications for Culture Dysuria,urgency,freq; Glucose, Urine (Dipstick) Normal (Negative); Leukocyte Negative Leu/uL (Negative); Protein, Urine (Dipstick) Negative (Neg-Trace); RBC/HPF 0-3 HPF (0-3); Specific Gravity, Urine 1.019 (1.002-1.036); WBC/HPF 0-3 HPF (0-3)
[2025-06-14 19:36] LABS: Urine Culture Reflex No No
== END 2025-06-14 19:27 | disposition home or self-care (01) ==
LOC: ERS 16:56
DX: E86.0 Dehydration (principal); R11.10 Vomiting, unspecified; R19.7 Diarrhea, unspecified; F17.290 Nicotine dependence, other tobacco product, uncomplicated
CPT/HCPCS: 36415; 80053; 81001; 81025; 83690; 84703; 85025; 87081; 87428; 87430; 93005; 99284; Q0162

== ENCOUNTER 2025-09-07 23:34 | Observation (INO) | payer SELFPAY ==
[2025-09-08] MEDS ORDERED: Ondansetron PF 4 MG/2 ML Vial ONE ×2 (00:31→20:26)
[2025-09-08 00:44] LABS: Pregnancy Test - Urine (BHCG) Negative (Negative); Pregu Control Background? CLEAR/WHITE (CLR/WHITE); Pregu Control Bar Appear? YES (CONTROL BAR)
[2025-09-08 00:54] LABS: #Basophils 0.05 10x3/uL (0.0-0.2); #Eosinophils 0.15 10x3/uL (0.0-0.7); #Monocytes 0.61 10x3/uL (0.11-0.59); #Neutrophils 4.03 10x3/uL (1.40-6.50); %Basophils 0.7 % (0.0-1.0); %Eosinophils 2.0 % (0.0-10.0); %Lymphocytes 33.8 % (21.0-51.0); %Monocytes 8.3 % (0.0-10.0); %Neutrophils 54.9 % (42.0-75.0); Hematocrit 40.7 % (36.0-47.0); Hemoglobin 13.2 g/dL (12.0-16.0); Mean Corpuscular Hemoglobin 29.4 pg (27.0-31.0); Mean Corpuscular Volume 90.6 fL (78.0-98.0); Platelet Count 276 10x3/uL (130-400); Red Blood Cell (RBC) Count 4.49 mill/uL (4.20-5.40); White Blood Cell (WBC) Count 7.34 10x3/uL (4.8-10.8)
[2025-09-08 01:17] LABS: ALT (SGPT) 15 U/L (Less than 34); AST (SGOT) 29 U/L (11-34); Albumin 4.4 g/dL (3.1-4.5); Alkaline Phosphatase 91 U/L (40-110); Anion Gap 15 mmol/L (10-20); BUN (Urea Nitrogen) 12 mg/dL (7.0-18.7); Bilirubin, Total 0.1 mg/dL (0.3-1.2); CK (CPK) 449 U/L (29-168); Calc. Creatinine Clearance 0 mL/min (70-130); Calcium 9.5 mg/dL (7.8-10.44); Carbon Dioxide 25 mmol/L (22-29); Chloride 104 mmol/L (98-107); Globulin 3.1 g/dL (2.4-3.5); Glucose 101 mg/dL (70-105); Lipase 45 U/L (8-78); Potassium 3.3 mmol/L (3.5-5.1); Sodium 141 mmol/L (136-145)
[2025-09-08] MEDS ORDERED: Famotidine/PF 20 mg/2ml Vial ONE (01:33)
[2025-09-08] MEDS ORDERED: Ketorolac Tromethamine 30 MG (1 mL) VIAL ONE ×4 (01:33→22:04)
[2025-09-08] MEDS ORDERED: Metoclopramide HCl 10 MG (2 mL) VIAL ONE (01:38)
[2025-09-08] MEDS ORDERED: Lidocaine Viscous Sol 2% 15 ml UD Cup ONE (05:37)
[2025-09-08] MEDS ORDERED: Mag-Al 1200 mg/1200 mg/30 ML UDCUP ONE (05:37)
[2025-09-08] MEDS ORDERED: Acetaminophen 325 MG TAB PO PRN (06:53)
[2025-09-08] MEDS ORDERED: hydrALAZINE 20 MG/ML VIAL SLOW IVP PRN (06:53)
[2025-09-08 08:02] LABS: Bacteria/HPF None Seen HPF (None Seen); CAUTI Indications for Culture Pelvic or flank pain; Glucose, Urine (Dipstick) Normal (Negative); Leukocyte Negative Leu/uL (Negative); Protein, Urine (Dipstick) Negative (Neg-Trace); RBC/HPF 0-3 HPF (0-3); Specific Gravity, Urine 1.018 (1.002-1.036); WBC/HPF 0-3 HPF (0-3)
[2025-09-08 08:04] LABS: Urine Culture Reflex No No
[2025-09-08 08:32] VITALS: BMI 26.6
[2025-09-08] MEDS: Ondansetron PF 4 MG/2 ML Vial IVP PRN (10:45)
[2025-09-08] MEDS: Ketorolac Tromethamine 30 MG (1 mL) VIAL IVP SCH (13:15)
[2025-09-08] MEDS ORDERED: Rocuronium Bromide 10 MG/ML (10ML VIAL) ONE (20:26)
[2025-09-08] MEDS ORDERED: Lidocaine 1% PF 5 ML VIAL ONE (20:26)
[2025-09-08] MEDS ORDERED: fentaNYL PF 100 MCG/2 ML SYRINGE ONE (20:26)
[2025-09-08] MEDS ORDERED: Bupivacaine 0.25% HCL 30 ML VIAL ONE (20:36)
[2025-09-08] MEDS ORDERED: CEFAZOLIN 2 GM VIAL ONE (20:45)
[2025-09-08] MEDS ORDERED: PROPOFOL 200 MG/20 ML VIAL ONE (21:01)
[2025-09-08] MEDS ORDERED: SUGAMMADEX SODIUM 200 MG/2 ML VIAL ONE (21:25)
[2025-09-08] MEDS ORDERED: Glucagon 1 MG/ML KIT IM PRN (21:49)
[2025-09-08] MEDS ORDERED: HYDROcodone/Acetaminophen 10/325 mg Tablet PO PRN (21:49)
[2025-09-08] MEDS ORDERED: Dextrose 50% Abboject 50 ML SYRINGE SLOW IVP PRN (21:49)
[2025-09-08] MEDS: Heparin 5,000 UNITS/ML VIAL SC SCH (23:11)
[2025-09-09] MEDS: Ketorolac Tromethamine 30 MG (1 mL) VIAL IVP SCH (04:05)
[2025-09-09 05:22] LABS: #Basophils Less than 0.03 10x3/uL (0.0-0.2); #Eosinophils Less than 0.03 10x3/uL (0.0-0.7); #Monocytes 0.43 10x3/uL (0.11-0.59); #Neutrophils 9.91 10x3/uL (1.40-6.50); %Basophils 0.2 % (0.0-1.0); %Eosinophils 0.0 % (0.0-10.0); %Lymphocytes 10.9 % (21.0-51.0); %Monocytes 3.7 % (0.0-10.0); %Neutrophils 84.9 % (42.0-75.0); Hematocrit 37.5 % (36.0-47.0); Hemoglobin 12.8 g/dL (12.0-16.0); Mean Corpuscular Hemoglobin 30.1 pg (27.0-31.0); Mean Corpuscular Volume 88.2 fL (78.0-98.0); Platelet Count 249 10x3/uL (130-400); Red Blood Cell (RBC) Count 4.25 mill/uL (4.20-5.40); White Blood Cell (WBC) Count 11.66 10x3/uL (4.8-10.8)
[2025-09-09 05:41] LABS: ALT (SGPT) 47 U/L (Less than 34); AST (SGOT) 64 U/L (11-34); Albumin 3.6 g/dL (3.1-4.5); Alkaline Phosphatase 65 U/L (40-110); Anion Gap 12 mmol/L (10-20); BUN (Urea Nitrogen) 8 mg/dL (7.0-18.7); Bilirubin, Total 0.3 mg/dL (0.3-1.2); Calc. Creatinine Clearance 115 mL/min (70-130); Calcium 8.6 mg/dL (7.8-10.44); Carbon Dioxide 22 mmol/L (22-29); Chloride 106 mmol/L (98-107); Globulin 2.7 g/dL (2.4-3.5); Glucose 139 mg/dL (70-105); Potassium 3.9 mmol/L (3.5-5.1); Sodium 136 mmol/L (136-145)
[2025-09-09] MEDS: Famotidine 20 MG TAB PO SCH (08:11)
[2025-09-09 13:11] VITALS: BP 108/76; TEMP 98.3
[2025-09-09] MEDS: PNEUMOC 20-VAL CONJ-DIP CRM/PF 0.5 ML SYRINGE IM ONE (13:27)
[2025-09-09] MEDS: FLU (Fluarix Triv) 25-26 (6MOS UP)/PF 45 MCG/0.5 ML Syringe IM ONE (13:27)
== END 2025-09-09 13:39 | disposition home or self-care (01) ==
LOC: ERS 23:34 → SURG B 09-08 06:53
PROVIDERS: ADMIT Surgery; ATTEND Surgery
PROC: 0FT44ZZ Resection of Gallbladder, Percutaneous Endoscopic Approach (ICD-10-PCS; principal; 2025-09-08)
DX: K80.12 Calculus of gallbladder with acute and chronic cholecystitis without obstruction (principal); K82.8 Other specified diseases of gallbladder; Z98.890 Other specified postprocedural states; Z88.1 Allergy status to other antibiotic agents; Z88.8 Allergy status to other drugs, medicaments and biological substances
CPT/HCPCS: 36415; 76705; 80053; 81001; 81025; 82550; 83690; 85025; 88304; 93005; 96361; 96365; 96375; 96376; C1889; J0665; J1100; J1308; J1644; J1885; J2270; J2405; J2543; J2550; J2704; J2765; J3010; Q0162; S2900